=== PATIENT | female | born 1955 | race Caucasian/White ===

== ENCOUNTER 2022-07-18 16:02 | Emergency (ER) | payer MEDICARE, SELFPAY ==
[2022-07-18 16:16] VITALS: BP 140/74; PULSE 69; RESP 20; TEMP 36.3; O2SAT 99
--- NOTE | 2022-07-18 16:26 | ED.SKABFB ---
HPI - Skin/Abscess/Foreign Bdy General Chief complaint: Skin/Abscess/Foreign Body Stated complaint: Lt Facial Irritation Time Seen by Provider: 07/18/22 16:26 Source: patient Mode of arrival: ambulatory Limitations: no limitations History of Present Illness HPI narrative: 66-year-old female presents with rash above upper left on left side. Reports she has tingling and pain to left side of face. Redness and swelling below left eye. Symptoms for 2-3 days. Is concerned that she may have shingles. All systems reviewed and negative except as noted above. Related Data Home Medications Medication Instructions Recorded Confirmed atorvastatin 10 mg tablet 10 mg PO DAILY 07/18/22 07/18/22 escitalopram oxalate 20 mg tablet 20 mg PO DAILY 07/18/22 07/18/22 losartan 50 mg tablet 50 mg PO DAILY 07/18/22 07/18/22 meloxicam 15 mg tablet 15 mg PO DAILY 07/18/22 07/18/22 Review of Systems Review of Systems: CONSTITUTIONAL: Denies fever, chills, or sweats. EYES: Denies visual changes, redness, or discharge. ENT: Denies rhinorrhea, congestion, sore throat, or otalgia. CARDIOVASCULAR: Denies chest pain, palpitations, or edema. RESPIRATORY: Denies cough or dyspnea. GASTROINTESTINAL: Denies abdominal pain, nausea, vomiting, or diarrhea. GENITOURINARY: Denies dysuria or hematuria. SKIN: Reports painful rash to left side of face. MUSCULOSKELETAL: Denies back pain, joint pain, or myalgia. NEUROLOGIC: Denies headache, numbness, or weakness. PSYCHIATRIC: Denies anxiety or depression. All other systems reviewed are negative, except as documented in HPI. PMFSH Comments At time of signature, agree with nursing past medical, surgical, social and family history. There is no relevant family history pertinent to the presenting complaint. Exam Narrative: GENERAL: This is a well-nourished, well-developed patient, in no apparent distress. HEAD: normocephalic, atraumatic. EYES: PERRL. Sclera clear/white. Vision is grossly intact. EARS: External ears normal NOSE: External nose normal NECK: Neck supple, non-tender without lymphadenopathy, masses or thyromegaly. CARDIOVASCULAR: Regular rate and rhythm without murmurs, gallops, or rubs. RESPIRATORY: Clear to auscultation. Breath sounds equal bilaterally. No wheezes, rales, or rhonchi. SKIN: warm, Dry, intact, good texture and turgor. Erythematous, vesicular rash just above left upper lip. There is also some erythema and swelling NEURO: awake, alert, and oriented to person, place and time. There were no obvious focal neurologic abnormalities. EXTREMITIES: No joint tenderness, effusion, or edema noted. HENMT: Head images: 1. Shingles rash 2. shingles rash, no eye involvement. Course Course Level of Care: Express Care Visit Vital Signs Vital signs: Vital Signs Temperature 36.3 C L 07/18/22 16:16 Pulse Rate 69 07/18/22 16:16 Respiratory Rate 20 07/18/22 16:16 Blood Pressure 140/74 07/18/22 16:16 Pulse Oximetry 99 07/18/22 16:16 Oxygen Delivery Room Air 07/18/22 16:16 Temperature 36.3 C L 07/18/22 16:16 Pulse Rate 69 07/18/22 16:16 Respiratory Rate 20 07/18/22 16:16 Blood Pressure 140/74 07/18/22 16:16 Pulse Oximetry 99 07/18/22 16:16 Oxygen Delivery Room Air 07/18/22 16:16 Reviewed MDM - Skin/Abscess/Foreign Bdy MDM Narrative Medical decision making narrative: Patient is aware of diagnosis, understands and agrees to treatment plan. Anticipatory guidance given. Patient agrees to follow-up as directed and is aware of reasons to seek care at the emergency department. Portions of this record may have been created with voice recognition software Differential Diagnosis Differential diagnosis: Likely abscess of skin or subcutaneous tissue, viral exanthem, cellulitis, eczema and contact dermatitis Discharge Plan Discharge Clinical Impression: Shingles Patient Disposition: Home, Self-Care Condition: Stable Instructions:
== END 2022-07-18 16:38 | disposition home or self-care (01) ==
PROVIDERS: Emergency Provider Nurse Practitioner Family; PCP Family Medicine
DX: B02.9 Zoster without complications (principal); E78.00 Pure hypercholesterolemia, unspecified; I10 Essential (primary) hypertension; M19.90 Unspecified osteoarthritis, unspecified site; F41.9 Anxiety disorder, unspecified; F32.A Depression, unspecified
CPT/HCPCS: 99203; G0463

== ENCOUNTER 2025-02-26 10:52 | Emergency (ER) | payer MEDICARE, SELFPAY ==
--- NOTE | 2025-02-26 10:55 | ED_ITS ---
HPI - URI/Sore Throat General Chief Complaint: Upper Respiratory Infection Stated Complaint: sinus infection Source: patient and RN notes reviewed Mode of arrival: ambulatory Limitations: no limitations History of Present Illness HPI Narrative: Patient is a 69-year-old female who presents to the [facility] with complaints cough, sore throat, and ear pain . Patient endorses a frequent nonproductive is occasionally productive. She reports scratchy throat that she believes may be due to post nasal drip. Patient also reports a left ear pain. She denies ear drainage or difficulty hearing. Denies recent fevers. She denies chest pain or shortness of breath. Patient states daughter was sick with similar symptoms recently. Related Data Home Medications ?Medication ?Instructions ?Recorded ?Confirmed ?Last Taken ?Type escitalopram oxalate 20 mg tablet 20 mg PO DAILY 07/18/22 07/18/22 Unknown History losartan 50 mg tablet 50 mg PO DAILY 07/18/22 07/18/22 Unknown History prednisone 20 mg tablet mg 02/26/25 Unknown History Allergies Allergy/AdvReac Type Severity Reaction Status Date / Time No Known Allergies Allergy Verified 02/26/25 11:01 Review of Systems Review of Systems: CONSTITUTIONAL: Denies fever, chills, or sweats. EYES: Denies visual changes, redness, or discharge. ENT: Reports otalgia and sore throat CARDIOVASCULAR: Denies chest pain, palpitations, or edema. RESPIRATORY: Reports cough but denies dyspnea. GASTROINTESTINAL: Denies abdominal pain, nausea, vomiting, or diarrhea. GENITOURINARY: Denies dysuria or hematuria. SKIN: Denies rash or itching. MUSCULOSKELETAL: Denies back pain, joint pain, or myalgia. NEUROLOGIC: Denies headache, numbness, or weakness. Pertinent positives per HPI. PMFSH Comments At the time of my signature, I reviewed and agree with the nursing past medical, surgical, social, and family history. There is no relevant family history pertinent to the patient complaint. Exam Narrative: GENERAL: This is a well-nourished, well-developed patient, in no apparent distress. HEAD: normocephalic, atraumatic. EYES: Sclera clear/white. Vision is grossly intact. EARS: External ears normal, auditory canals clear and without drainage, Right TM erythematous. Left TM erythematous and bulging. Hearing grossly intact. NOSE: External nose normal with no obvious nasal discharge, nares without redness, no rhinorrhea. THROAT: Mucous membranes moist, oropharyngeal erythema. NECK: Neck supple, non-tender without lymphadenopathy, masses or thyromegaly. CARDIOVASCULAR: Regular rate and rhythm without murmurs, gallops, or rubs. RESPIRATORY: Clear to auscultation. Breath sounds equal bilaterally. No wheezes, rales, or rhonchi. GASTROINTESTINAL: Abdomen soft, non-tender, nondistended. Bowel sounds are active. No hepato-splenomegaly, or palpable masses. No guarding. SKIN: warm, intact with no suspicious lesions or rash, good texture and turgor. NEURO: awake, alert, and oriented to person, place and time. There were no obvious focal neurologic abnormalities. Course Course Level of Care: Express Care Visit Vital Signs Vital signs: Vital Signs Temperature 97.7 F 02/26/25 11:01 Pulse Rate 87 02/26/25 11:01 Respiratory Rate 18 02/26/25 11:01 Blood Pressure 141/75 H 02/26/25 11:01 Pulse Oximetry 98 02/26/25 11:01 Oxygen Delivery Room Air 02/26/25 11:01 Temperature 97.7 F 02/26/25 11:01 Pulse Rate 87 02/26/25 11:01 Respiratory Rate 18 02/26/25 11:01 Blood Pressure 141/75 H 02/26/25 11:01 Pulse Oximetry 98 02/26/25 11:01 Oxygen Delivery Room Air 02/26/25 11:01 Reviewed MDM - URI/Sore Throat MDM Narrative Medical decision making narrative: Take antibiotics as directed. May given ibuprofen and/or Tylenol as needed for pain and/or fever. Follow up with primary care provider in 7-10 days to have ear rechecked. Go to the ER for any new or worsening symptoms. Avoid smoking/second-hand smoke. Continue to take Tylenol or Motrin for pain. Increase your Vitamin C intake. Use a humidifier or vaporizer at night. Take Medications as prescribed. Drink plenty of water. 8-10 glasses per day. Use flonase 2 times per day for 5 days then as needed Take mucinex 2 times per day and be sure to take with 8oz of water. Follow up with Primary provider if not getting better. Differential Diagnosis Differential diagnosis: Likely upper respiratory infection, otitis media, sinusitis and viral infection Critical Care Time Critical Care Time Critical Care Time: No Discharge Plan Discharge Clinical Impression: Acute left otitis media Sinusitis Qualifiers: Sinusitis location: unspecified location Chronicity: acute Recurrence: non- recurrent Qualified Code(s): J01.90 - Acute sinusitis, unspecified Patient Disposition: Home Condition: Stable Instructions: Antibiotic Form, Sinusitis (ED), Ear Infection (ED) Additional Instructions: Take antibiotics as directed. May given ibuprofen and/or Tylenol as needed for pain and/or fever. Follow up with primary care provider in 7-10 days to have ear rechecked. Go to the ER for any new or worsening symptoms. Avoid smoking/second-hand smoke. Continue to take Tylenol or Motrin for pain. Increase your Vitamin C intake. Use a humidifier or vaporizer at night. Take Medications as prescribed. Drink plenty of water. 8-10 glasses per day. Use flonase 2 times per day for 5 days then as needed Take mucinex 2 times per day and be sure to take with 8oz of water. Follow up with Primary provider if not getting better. Patient Language: Qatari Prescriptions: New amoxicillin-pot clavulanate 875-125 mg tablet 1 tablet PO Q12H 10 Days Qty: 20 0RF fluticasone propionate [Flonase Allergy Relief] 50 mcg/actuation spray,suspension 1 spray intranasal BID Qty: 16 0RF Rx Instructions: administer into each nostril No Action losartan 50 mg tablet 50 mg PO DAILY escitalopram oxalate 20 mg tablet 20 mg PO DAILY prednisone 20 mg tablet Follow-up/Referrals: Gerardo,DAVID Barnett [Primary Care Provider] - Time of Disposition: 11:11
--- OUTSIDE RECORDS SUMMARY | 2025-02-26 10:58 | XMS_ITS | Clinical Summary ---
Author Organization [facility] Physician Office Building [id number] [place] [id number] Care Team Providers Care Office Rn Name Role Phone Jessica Farr MD Primary Care Provider Allergies Active Allergy Reactions Criticality Noted Date Comments Iodinated Contrast Media Hives Medium Povidone-Iodine Hives Medium Medications naproxen sodium 220 mg capsule Take 2 tablets by mouth daily. Active calcium carb/vit D3/minerals (CALCIUM CARBONATE-VIT D3-MIN ORAL) Take by mouth. Active omega-3 fatty acids (LOVAZA) 1 gram capsule Take 1,000 mg by mouth daily. Active escitalopram (LEXAPRO) 20 mg tablet Take 20 mg by mouth daily 01/17/2020 Active losartan (COZAAR) 50 mg tablet Take 50 mg by mouth daily 01/17/2020 Active meclizine (ANTIVERT) 25 mg tablet Take 25 mg by mouth every 8 (eight) hours as needed 07/03/2019 Active docosahexaenoic acid-epa 120-180 mg capsule Take 1,000 mg by mouth daily Active Active Problems Problem Noted Date Diagnosed Date Encounter for screening colonoscopy 06/24/2020 Overview (06/24/2020): Added automatically from request for surgery [id number] Personal history of colonic polyps 06/24/2020 Overview (06/24/2020): Added automatically from request for surgery [id number] Surgical History Surgery Date Site/Laterality Comments TUBAL LIGATION Bilateral tubal ligation BREAST BIOPSY 08/16/1998 - 08/15/1999 Breast biopsy HYSTERECTOMY 08/16/2010 - 08/15/2011 ANKLE SURGERY Left DILATION AND CURETTAGE OF UTERUS x3-4 SPINE SURGERY 08/16/2016 - 08/15/2017 microdiscectomy TONSILLECTOMY ANKLE FRACTURE SURGERY BACK SURGERY COLONOSCOPY 06/16/2015 - 07/15/2015 POLYPECTOMY Medical History Medical History Date Comments Hx Other Medical panic disorder Depression Depression Anemia Anemia Hypertension GERD (gastroesophageal reflux disease) Arthritis Asthma Kidney stone Colon polyp Family History Medical History Relation Name Comments No Known Problems Brother No Known Problems Daughter No Known Problems Father No Known Problems Mother No Known Problems Sister No Known Problems Son Relation Name Status Comments Brother Daughter Father Mother Sister Son Social History Tobacco Use Types Packs/Day Years Used Date Smoking Tobacco: Former Cigarettes Q uit: 07/01/1973 Smokeless Tobacco: Never Alcohol Use Standard Drinks/Week Comments No 0 (1 standard drink = 0.6 oz pur e alcohol) Comments No Sex and Gender Information Value Date Recorded Sex Assigned at Not on file Legal Sex Female 8:07 AM BAND SAWMILL OPERATOR Gender Identity Female 06/17/2022 5:52 PM CDT Sexual Orientation Not on file Obstetrics History Last Filed Vital Signs Vital Sign Reading Time Taken Comments Blood Pressure 107/56 07/23/2020 10:33 AM BAND SAWMILL OPERATOR Pulse 61 07/23/2020 10:33 AM BAND SAWMILL OPERATOR Temperature 36.6 C (97.8 F) 07/23/2020 10:33 AM BAND SAWMILL OPERATOR Respiratory Rate 20 07/23/2020 10:33 AM BAND SAWMILL OPERATOR Oxygen Saturation 99% 07/23/2020 10:33 AM BAND SAWMILL OPERATOR Inhaled Oxygen Concentration - - Weight 99.4 kg (219 lb 3.2 oz) 06/24/2020 8:15 A M BAND SAWMILL OPERATOR Height 167.6 cm (5' 6) 06/24/2020 8:15 AM BAND SAWMILL OPERATOR Body Mass Index 35.38 06/24/2020 8:15 AM BAND SAWMILL OPERATOR Plan of Treatment Not [place] [address] [place] For more information, please contact: [phone] * Full Code (Latest Code Status on File) Date Activated Date Inactivated Comments 07/23/2020 8:15 AM 07/23/2020 2:51 PM * Full Code Date Activated Date Inactivated Comments 07/23/2020 8:15 AM 07/23/2020 8:15 AM Care Teams Office Rn Relationship Specialty Start Date End Date Jessica Farr MD PCP - General 05/19/17
--- OUTSIDE RECORDS SUMMARY | 2025-02-26 10:58 | XMS_ITS | Encounter Summary ---
Author Organization [facility] Address [address] [place] [address] Phone Care Team Providers Care Pmo Consultant Name Role Phone Jessica Farr MD Primary Care Provider [phone] Adalberto Gentile MD Unavailable Nithin Vu MD Primary Care Provider [phone] Karen Carrillo Primary Care Provider + Karen Carrillo PAC Primary Care Provider + Reason for Visit * Reason Comments Medication Refill Encounter Details Date Type Department Care Team (Late st Contact Info) Description 12/23/2022 Refill [facility] - Family Medicine [facility] [address] [place] [id number] Jessica Farr MD [address] [place] [address] Medication Refill Social History Tobacco Use Types Packs/Day Years Used Date Smoking Tobacco: Former Smokeless Tobacco: Never Comments:Pt states that she would only smoke socially Alcohol Use Standard Drinks/Week Comments No 0 (1 standard drink = 0.6 oz pur e alcohol) PHQ-2 Answer Date Recorded Total Score - Questions 1-9 0 01/2022 Education Answer Date Recorded What is the highest level of school you have completed or the highest degree you have received? Bachelor's degree (e.g., BA, AB, BS) 08/30/2021 Sexually Active Control Partners Comments Not Currently Male Comments No Sex and Gender Information Value Date Recorded Sex Assigned at Not on file Legal Sex Female 11:10 PM CDT Gender Identity Not on file Sexual Orientation Not on file documented as of this encounter Miscellaneous Notes * Telephone Encounter - Angela Lopez RN - 12/24/2022 12:11 PM CDT Medication failed the protocol, provider to review and approve the medication order if appropriate. Requested Prescriptions Pending Prescriptions Disp Refills meloxicam (MOBIC) 15 MG Tablet [Pharmacy Med Name: MELOXICAM 15 MG TABLET] 90 Tablet 1 Sig: TAKE 1 TABLET BY MOUTH EVERY DAY NSAIDs Protocol Failed - 12/23/2022 5:59 PM Failed - Not delegated, patient not between 1 and 65 years of age Passed - Normal serum creatinine in past 12 months CREATININE, BLOOD Date Value Ref Range Status 07/21/2022 0.70 0.60 - 1.10 mg/dL Final Passed - Visit with relevant provider in past 12 months or upcoming 90 days Recent Visits Date Type Provider Dept 07/28/22 Office Visit Jessica Farr MD [facility] 07/21/22 Office Visit Nithin Vu MD [facility] 01/26/22 Office Visit Jessica Farr MD [facility] Showing recent visits within past 365 days and meeting all other requirements Future Appointments Date Type Provider Dept 01/26/23 Appointment Jessica Farr MD [facility] Showing future appointments within next 90 days and meeting all other requirements Passed - No matching NSAID med order in past 45 days No matching medication orders between 11/09/2022 12:11 PM and 12/24/2022 12:11 PM Passed - AST less than 55 or ALT less than 90 in past 12 months SGOT (AST) Date Value Ref Range Status 07/21/2022 25 <=32 U/L Final SGPT (ALT) Date Value Ref Range Status 07/21/2022 22 <=41 U/L Final Passed - HGB greater than 10 or HCT greater than 30 in past 12 months HEMOGLOBIN (HGB) Date Value Ref Range Status 07/21/2022 14.2 12.0 - 15.8 g/dL Final HEMATOCRIT (HCT) Date Value Ref Range Status 07/21/2022 42.8 36.0 - 47.0 % Final documented in this encounter Plan of Treatment Upcoming Encounters Date Type Department Care Team (Late st Contact Info) Description 03/06/2025 2:30 PM CDT Office Visit [facility] General Surgery - [place] [address]2 [facility] [address] [place] [address] Karen Carrillo, PAC [address] [place] [address] Dirk Peña MD #2 [facility] [address] [place] [address] 06/28/2025 9:45 AM BOBTAILER Office Visit [facility] [address]2 [place] [phone] Adalberto Gentile MD #2 [facility] [address] [place] [address] 08/22/2025 9:00 AM BOBTAILER Office Visit [facility] Family Medicine [facility] [address] [place] [address] Karen Carrillo, PAC [address] [place] [address] documented as of this encounter Visit Diagnoses Not on filedocumented in this encounter Additional Health Concerns Assessment Noted Time PHQ-9 Depression Total Score: 0 07/21/20 9:00 AM BOBTAILER documented as of this encounter Care Teams Pmo Consultant Relationship Specialty Start Date End Date Jessica Farr MD [address] [place] [address] PCP - General Family Medicine 05/19/17 11/10/23 Nithin Vu MD [address] [facility] [address] [address] PCP - General Family Medicine 11/11/23 05/23/24 Karen Carrillo, MELIDA [address] [place] [address] PCP - General Physician First Aid Nurse 05/24/24 05/25/24 Karen Carrillo, PAC [address] [place] [address] PCP - General Physician First Aid Nurse 08/22/24 Adalberto Gentile MD [address] [address] [address] Consulting Physician Urology 06/17/23 documented as of this encounter
--- OUTSIDE RECORDS SUMMARY | 2025-02-26 10:58 | XMS_ITS | Encounter Summary ---
Author Organization [facility] Address [address] [place] [address] Phone Care Team Providers Care Dental Office Receptionist Name Role Phone Jessica Farr MD Primary Care Provider [phone] Adalberto Gentile MD Unavailable Nithin Vu MD Primary Care Provider [phone] Karen Carrillo Primary Care Provider + Karen Carrillo PAC Primary Care Provider + Reason for Visit * Reason Comments Medication Refill Encounter Details Date Type Department Care Team (Late st Contact Info) Description 09/23/2022 Refill [facility] - Family Medicine [facility] [address] [place] [phone] Jessica Farr MD [address] [place] [address] Medication Refill Social History Tobacco Use Types [...] encounter Miscellaneous Notes * Telephone Encounter - Jasmine Weiss RN - 09/23/2022 11:10 AM LISW Refill requested too soon. documented in this encounter Plan of Treatment Upcoming Encounters Date Type Department Care Team (Late st Contact Info) Description 03/06/2025 2:30 PM CDT Office Visit [facility] General Surgery [facility] #2 [facility] [address] [place] [address] Karen Carrillo, PAC [address] [place] [address] Dirk Peña MD #2 [facility] [address] [place] [address] 06/28/2025 9:45 AM LISW Office Visit [facility] #[address] [place] [address] Adalberto Gentile MD #2 [facility] [address] [place] [address] 08/22/2025 9:00 AM LISW Office Visit [facility] Family Medicine [facility] [address] [place] [address] Karen Carrillo, PAC [address] [place] [address] documented as of this encounter Visit Diagnoses Not on filedocumented in this encounter Additional Health Concerns Assessment Noted Time PHQ-9 Depression Total Score: 0 07/21/20 22 9:00 AM LISW documented as of this encounter Care Teams Dental Office Receptionist Relationship Specialty Start Date End Date Jessica Farr MD [address] [place] [address] PCP - General Family Medicine 05/19/17 11/10/23 Nithin Vu MD #[address] [address] PCP - General Family Medicine 11/11/23 05/23/24 Karen Carrillo PAC [address] [place] [address] PCP - General Physician Hand Filer Balance Wheel 05/24/24 05/25/24 Karen Carrillo, MELIDA [address] [place] [address] PCP - General Physician Hand Filer Balance Wheel 08/22/24 Adalberto Gentile MD #[address] [address] Consulting Physician Urology 06/17/23 documented as of this encounter
--- OUTSIDE RECORDS SUMMARY | 2025-02-26 10:58 | XMS_ITS | Encounter Summary ---
Author Organization [facility] Address [address] [place] [address] Phone Care Team Providers Care Loader Machine Name Role Phone Jessica Farr MD Primary Care Provider [phone] Adalberto Gentile MD Unavailable Nithin Vu MD Primary Care Provider [phone] Karen Carrillo Primary Care Provider + Karen Carrillo PAC Primary Care Provider + Reason for Visit * Reason Comments Medication Refill Encounter Details Date Type Department Care Team (Late st Contact Info) Description 11/28/2022 Refill [facility] - Family Medicine [facility] [address] [place] [id number] Jessica Farr MD [address] [place] [address] Medication Refill Social History Tobacco Use Types [...] Telephone Encounter - Jasmine Weiss RN - 11/30/2022 10:51 AM CDT Medication failed the protocol, provider to review and approve the medication order if appropriate. Requested Prescriptions Pending Prescriptions Disp Refills metroNIDAZOLE 1 % Gel [Pharmacy Med Name: METRONIDAZOLE TOPICAL 1% GEL] 60 g Sig: Apply to face daily at bedtime Not Delegated - Off Protocol Failed - 11/28/2022 9:15 AM Failed - This refill cannot be delegated Passed - Visit with relevant provider in past 12 months or upcoming 90 days Recent Visits Date Type Provider Dept 07/28/22 Office Visit Jessica Farr MD [facility] 07/21/22 Office Visit Nithin Vu MD [facility] 01/26/22 Office Visit Jessica Farr MD [facility] Showing recent visits within past 365 days and meeting all other requirements Future Appointments Date Type Provider Dept 01/26/23 Appointment Jessica Farr MD [facility] Showing future appointments within next 90 days and meeting all other requirements documented in this encounter Plan of Treatment Upcoming Encounters Date Type Department Care Team (Late st Contact Info) Description 03/06/2025 2:30 PM CDT Office Visit [facility] - General Surgery - [place] [address] [phone] Karen Carrillo, PAC [address] [place] [address] Dirk Peña MD #2 [facility] [address] [place] [address] 06/28/2025 9:[address] CLEANING EQUIPMENT OPERATOR Office Visit [facility] [address] [place] [address] Adalberto Gentile MD #2 [facility] [address] [place] [address] 08/22/2025 9:[address] CLEANING EQUIPMENT OPERATOR Office Visit [facility] [address] [place] [address] Karen Carrillo, PAC [address] [place] [address] documented as of this encounter Visit Diagnoses Not on filedocumented in this encounter Additional Health Concerns Assessment Noted Time PHQ-9 Depression Total Score: 0 07/21/20 22 9:[address] CLEANING EQUIPMENT OPERATOR documented as of this encounter Care Teams Loader Machine Relationship Specialty Start Date End Date Jessica Farr MD [address] [place] [address] PCP - General Family Medicine 05/19/17 11/10/23 Nithin Vu MD #[address] [address] PCP - General Family Medicine 11/11/23 05/23/24 Karen Carrillo, PAC [address] [place] [address] PCP - General Physician Flare Breaker 05/24/24 05/25/24 Karen Carrillo, MELIDA [address] [place] [address] PCP - General Physician Flare Breaker 08/22/24 Adalberto Gentile MD [facility] [address] [address] Consulting Physician Urology 06/17/23 documented as of this encounter
--- OUTSIDE RECORDS SUMMARY | 2025-02-26 10:58 | XMS_ITS | Clinical Summary ---
Author Organization [facility] Address [address] [place] [address] Phone Care Team Providers Care Patient Services Rep Name Role Phone Adalberto Gentile MD Unavailable Karen Carrillo Primary Care Provider + Allergies No known active allergies Medications fish oil-omega-3 fatty acids 1000 MG Capsule Take 1,000 mg by mouth daily. Active Calcium Carbonate-Vit D-Min (CALCIUM 1200 PO) Take by mouth. Active meclizine (ANTIVERT) 25 MG Chewable Tablet Take 1 Tab by mouth every 8 hours as needed for Dizziness. 30 Tab 1 07/03/2019 Active Ascorbic Acid (Vitamin C) 1000 MG Tablet 08/16/2020 Acti ve Multiple Vitamin (MULTIVITAMIN PO) Take by mouth. Active escitalopram (LEXAPRO) 20 MG Tablet TAKE 1 TABLET BY MOUTH EVERY DAY 90 Tablet 3 08/31/2024 Active losartan (COZAAR) 50 MG Tablet TAKE 1 TABLET BY MOUTH EVERY DAY 90 Tablet 2 09/27/2024 Active meloxicam (MOBIC) 15 MG Tablet TAKE 1 TABLET BY MOUTH EVERY DAY NEEDED FOR MODERATE OR MORE SEVERE PAIN 90 Tablet 1 10/05/2024 Active predniSONE (DELTASONE) 20 MG Tablet Take 3 pills orally for 3 days, then 2 pills for 3 days, then 1 pill for 3 days, then 1/2 pill for 4 days 20 Tablet 02/13/2025 02/27/20 25 Active Active Problems Problem Noted Date Diagnosed Date Low bone mass 08/22/2024 Anxiety 12/01/2023 Herpes zoster without complication 07/21/2022 Cold sore 07/21/2022 Nonalcoholic hepatosteatosis 02/26/2021 Personal history of colonic polyps 06/24/2020 Overview (11/11/2023): Added automatically from request for surgery [id number] Mild intermittent asthma without complication Breast cancer screening 05/19/2016 HTN (hypertension) 10/07/2015 Seasonal allergies GERD (gastroesophageal reflux disease) Resolved Problems Problem Noted Date Diagnosed Date Resolved Date Depression 07/21/2016 12/01/2023 Encounters Date Type Department Care Team Description 02/19/2025 9:15 AM CDT Office Visit [facility] [address] [place] [phone] Karen Carrillo, PAC Hypertension, unspecified type (Primary Dx); Inclusion cyst; Anxiety Discharge Disposition: Discharged to home or Selfcare 02/17/2025 Travel 02/12/2025 Nurse Triage [facility] [address] [place] [phone] Karen Carrillo, PAC Advice Only; Rash 12/20/2024 Telephone [facility] [address] [place] [address] Karen Carrillo, PAC Referral 12/20/2024 Telephone [facility] [address] [place] [phone] Karen Carrillo, PAC Referral; Appointment 12/19/2024 9:15 AM CDT Office Visit [facility] [address] [place] [address] Oegeetha, Kathe N, VISION CARE ASSOCIATE, SECONDARY SCHOOL TEACHER Cellulitis and abscess of trunk (Primary Dx); Other specified disorders of the skin and subcutaneous tissue Discharge Disposition: Discharged to home or Selfcare 12/19/2024 Travel 12/18/2024 Nurse Triage [facility] [address] [place] [phone] Karen Carrillo, PAC Advice Only; Lump from Last 3 Months Immunizations Immunization Administration Dates Next Due Covid-19, Mrna, Lnp-s, Pf, 30 Mcg/0.3 Ml Dose (P fizer) 11/18/2020,10/28/2020 Influenza Vaccine 06/01/2017,06/01/2017 Influenza Vaccine greater than 3 yrs 06/02/2017 Influenza Vaccine, MDCK,quadrivalent, pres free 05/30/2020,05/26/2019 Influenza Vaccine, Quadrivalent, PF 06/01/2021,1 Influenza, Quadrivalent, Adjuvanted 06/23/2023,1 Pneumococcal conjugate PCV20 , polysaccharide [id number] conjugate, adjuvant, PF 07/28/2022 RSV, Recombinant, Protein Larson bunit Rsvpref, Adjuvant Recon (Arexvy) 07/14/2023 TDAP Vaccine 02/06/2021 Tetanus Toxoid, Unspecified Formulation 04/16/20 12 Zoster Vaccine Recombinant 12/30/2023,06/23/2023 Family History Medical History Relation Name Comments Asthma Brother John Cancer Father Enma Skin cancer High Cholesterol Father Enma Hypertension Father Enma Kidney Stones Father Enma Prostate Cancer Father Enma Diabetes Maternal Grandmother Delores Belcher Hypertension Mother Neelam Kidney Stones Mother Neelam Osteoarthritis Mother Neelam Relation Name Status Comments Brother John Father Enma Alive Maternal Grandmother Delores Belcher Mother Neelam Social History Tobacco Use Types Packs/Day Years Used Date Smoking Tobacco: Former Cigarettes 0.3 4 Smokeless Tobacco: Never Tobacco Cessation:Counseling Given: Not Answered Comments:Pt states that she would only smoke socially Alcohol Use Standard Drinks/Week Comments No 0 (1 standard drink = 0.6 oz pur e alcohol) [facility] Utilities Answer Date Recorded In the past 12 months has e electric, gas, oil, or water company threatened to shut off services in your home? No 12/19/2024 Social Connection and Isolation Panel Answer Date Recorded In a typical week, how many times do you talk on the phone with family, friends, or neighbors? Three times a week 12/20/19 25 How often do you get togethe r with friends or relatives? Once a week 12/19/2024 How often do you attend chur ch or evangelical services? Patient declined 12/19/2024 Do you belong to any clubs o r organizations such as confucianism groups, unions, fraternal or athletic groups, or school groups? No 12/19/2024 How often do you attend meet ings of the clubs or organizations you belong to? Never 12/19/2024 Are you , , di vorced, , never , or living with a partner? Living with partner 12/19/2024 AUDIT-C Answer Date Recorded Q1: How often do you have a drink containing alcohol? Never 12/19/2024 Q2: How many drinks containi ng alcohol do you have on a typical day when you are drinking? Patient does not drink Q3: How often do you have si x or more drinks on one occasion? Never 12/19/2024 Overall Financial Resource Strain (CARDIA) Answe r Date Recorded How hard is it for you to pa y for the very basics like food, housing, medical care, and heating? Patient declined 12/19/2024 PHQ-2 Answer Date Recorded Total Score - Questions 1-9 0 07/0 02/2025 [facility] - Occupational Stress Questionnaire Answer Date Recorded Do you feel stress - tense, restless, nervous, or anxious, or unable to sleep at night because your mind is troubled all the time - these days? Not at all 12/19/2024 Exercise Vital Sign Answer Date Recorde d On average, how many days pe r week do you engage in moderate to strenuous exercise (like a brisk walk)? 5 days 12/19/2024 On average, how many minutes do you engage in exercise at this level? 90 min 12/19/2024 Hunger Vital Sign Answer Date Recorded Within the past 12 months, y ou worried that your food would run out before you got the money to buy more. Never true 12/20/19 25 Within the past 12 months, t he food you bought just didn't last and you didn't have money to get more. Never true 12/19/2024 PRAPARE - Transportation Answer Date Re corded In the past 12 months, has l ack of transportation kept you from medical appointments or from getting medications? Patient declined 12/19/2024 In the past 12 months, has l ack of transportation kept you from meetings, work, or from getting things needed for daily living? Patient declined 12/19/2024 Housing Stability Vital Sign Answer Boogie e Recorded In the last 12 months, was t here a time when you were not able to pay the mortgage or rent on time? No 11/10/2023 Number of Places Lived in the Last Year Not on f ile 11/10/2023 In the last 12 months, was t here a time when you did not have a steady place to sleep or slept in a skilled nursing (including now)? No 11/10/2023 Housing Stability Vital Sign Answer Boogie e Recorded In the last 12 months, was t here a time when you were not able to pay the mortgage or rent on time? Patient declined 12/20/19 Number of Times Moved in the Last Year Not on fi le 12/19/2024 At any time in the past 12 m [facility], were you homeless or living in a skilled nursing (including now)? Patient declined 12/19/2024 Education Answer Date Recorded What is the highest level of school you have completed or the highest degree you have received? Bachelor's degree (e.g., BA, AB, BS) 08/30/2021 Sexually Active Control Partners Comments Yes None Male Comments No Sex and Gender Information Value Date Recorded Sex Assigned at Not on file Legal Sex Female 11:10 PM CDT Gender Identity Not on file Sexual Orientation Not on file Last Filed Vital Signs Vital Sign Reading Time Taken Comments Blood Pressure 124/70 02/19/2025 8:57 AM CDT Pulse 57 02/19/2025 8:57 AM CDT Temperature 36.4 C (97.6 F) 02/19/2025 8:57 AM CDT Respiratory Rate 16 12/19/2024 9:22 AM CDT Oxygen Saturation 99% 02/19/2025 8:57 AM CDT Inhaled Oxygen Concentration - - Weight 89.4 kg (197 lb) 02/19/2025 8:57 AM CDT Height 167.6 cm (5' 6) 02/19/2025 8:57 AM CDT Body Mass Index 31.8 02/19/2025 8:57 AM CDT Plan of Treatment Upcoming Encounters Date Type Department Care Team (Late st Contact Info) Description 03/06/2025 2:30 PM CDT Office Visit [facility] - General Surgery [facility] [address] [facility] [address] [place] [phone] Karen Carrillo, PAC [address] [place] [address] Dirk Peña MD [address]2 [facility] [address] [place] [address] 06/28/2025 9:45 AM SEXOLOGIST Office Visit [facility] [address] [place] [phone] Adalberto Gentile MD [address]2 [facility] [address] [place] [address] 08/22/2025 9:00 AM SEXOLOGIST Office Visit [facility] [address] [place] [address] Karen Carrillo, PAC [address] [place] [address] Health Maintenance Due Date Last Done Comments Cologuard 2001 Immunochemical Fecal Occult Blood 2001 SARS-COV-2 Immunization ( season) 2024 07/14/2023, 07/21/2021, 11/18/2020, Additional history exists Influenza Immunization (#1) 2025 11/0 03/2023, 06/02/2022, 06/01/2021, Additional history exists Mammogram 06/16/2025 06/16/2024, 05/18, 04/22/2022, Additional history exists Colonoscopy 07/23/2025 07/23/2020, 06/27/2015 Colorectal Cancer Screening 07/23/2025 DEXA Bone Density 11/17/2025 11/18/2023, 10/31/2021 Td Immunization Every 10 Years (Adults With 1 Tdap) 02/06/2031 02/06/2021 Pneumococcal Immunization (50+ years) Completed 07/28/2022 Pneumococcal Immunization Combined Discontinued 07/28/2022 Respiratory Syncytial Virus (RSV) Immunization (Adult) Completed 07/14/2023 Zoster Immunization Completed 12/30/2023, Hepatitis B Immunization Aged Out No longer eligible based on patient's age to complete this topic Hepatitis C Virus (HCV) Screening Discontinued Human Papillomavirus (HPV) Immunization Aged Out No longer eligible based on patient's age to complete this topic Meningococcal Immunization (ACWY) Aged Out No longer eligible based on patient's age to complete this topic Rotavirus Immunization Aged Out No lo nger eligible based on patient's age to complete this topic Procedures Procedure Name Priority Date/Time Associated Diagnosis Comments EXTERNAL PHYSICAL THERAPY REFERRAL Routine 01/01/2025 12:00 AM CDT Vertigo DRAIN SKIN ABSCESS SIMPLE/SINGLE Routine 12/19/2024 11:47 AM CDT Cellulitis and abscess of trunk Other specified disorders of the skin and subcutaneous tissue CULTURE, AEROBIC ONLY Routine 12/19/2024 10:16 AM CDT Cellulitis and abscess of trunk CULTURE, ANAEROBIC Routine 12/19/2024 10 :16 AM CDT Cellulitis and abscess of trunk CULTURE, ANAEROBIC WITH CULTURE, AEROBIC Routine 12/19/2024 10:16 AM CDT Cellulitis and abscess of trunk [facility] SCREENING BILATERAL DIGITAL W CAD W GABY Routine 06/16/2024 3:15 PM CDT Visit for screening mammogram [facility] BONE DENSITOMETRY AXIAL SKELETON Routine 11/18/2023 1:14 PM CDT Post-menopausal COLONOSCOPY Routine 07/23/2020 from Last 3 Months or Most Recently Relevant to Health Maintenance Results * EXTERNAL PHYSICAL THERAPY REFERRAL (01/01/2025 12:00 AM CDT) 01/01/2025 Mallory Fritcher PAC OUTPT REFERRALS EXT/INT Final Result SCAN * DRAIN SKIN ABSCESS SIMPLE/SINGLE (12/19/2024 11:47 AM CDT) Narrative Kathe Frank APRN, CNP - 12/19/2024 11:47 AM CDT Kathe Frank APRN, CNP 12/19/2024 11:50 AM DRAIN SKIN ABSCESS SIMPLE/SINGLE Date/Time: 12/19/2024 11:47 AM Performed by: Kathe Frank APRN, CNP Authorized by: Kathe Frank APRN, CNP Type: abscess Body area: trunk Location details: back Anesthesia: local infiltration Anesthesia: Local Anesthetic: lidocaine 1% without epinephrine Sedation: Patient sedated: no Scalpel size: 11 Needle gauge: 22 Incision type: single straight Incision depth: dermal Complexity: simple Drainage: purulent Drainage amount: moderate Wound treatment: wound left open Packing material: 1/4 in iodoform gauze Patient tolerance: patient tolerated the procedure well with no immediate complications November Adilia Frank APRN, CNP PROCEDURE/MINOR SURGICAL ORDERABLES Final Result * CULTURE, ANAEROBIC (12/19/2024 10:16 AM CDT) CULTURE RESULTS MIXED PROBABLE ANAEROBES PRESENT. NO FURTHER WORKUP PERFORMED. 12/23/2024 12:32 PM CDT [facility] Culture DRAINAGE FLUID SPECIMEN / Unknown Non-Phlebotomy Collection / Unknown 12/19/2024 10:16 AM CDT 12/19/2024 10:16 AM CDT November Adilia Frank APRN, CNP MICROBIOLOGY - GENERAL OR DERABLES Final Result [facility] [address] [place] [address], [place] * CULTURE, AEROBIC ONLY (12/19/2024 10:16 AM CDT) CULTURE RESULTS [facility] 12/21/2024 11:27 PM CDT [facility] Comment:SENSITIVITY NOT PERF ORMED Culture DRAINAGE FLUID SPECIMEN / Unknown Non-Phlebotomy Collection / Unknown 12/19/2024 10:16 AM CDT 12/19/2024 10:16 AM CDT us November N Oehl VISION CARE ASSOCIATE, SECONDARY SCHOOL TEACHER MICROBIOLOGY - GENERAL OR DERABLES Final Result [facility] [address] [place] [address], * [facility] SCREENING BILATERAL DIGITAL W CAD W GABY (06/16/2024 3:15 PM CDT) Anatomical Region Laterality Modality breast Bilateral Mammography 06/16/2024 4:26 PM CDT Narrative 06/20/2024 12:45 PM SEXOLOGIST - [facility] SCREENING BILATERAL DIGITAL W CAD W GABY BILATERAL DIGITAL SCREENING MAMMOGRAM 3D/2D WITH CAD WITH MEDIOLATERAL OBLIQUE CRANIOCAUDAL: 06/16/2024 The study was acquired using digital technology and interpreted from soft copy. Current study was also evaluated with ICAD version 7.2. 2D digital mammographic views, as well as 3D digital tomosynthesis were performed in the CC and MLO projections. CLINICAL: Routine screening. Patient has no complaints. No personal history of cancer. No family history of breast cancer. COMPARISONS: Comparison is made to exams dated: 06/14/2023, 04/22/2022, 03/26/2021, and 07/02/2018 [facility]. BREAST TISSUE:There are scattered areas of fibroglandular density. FINDINGS: No significant masses, calcifications, or other findings are seen in either breast. There has been no significant interval change. IMPRESSION: NEGATIVE There is no mammographic evidence of malignancy. A 1 year screening mammogram is recommended. A letter will be sent to the patient with these results. The patient will be entered into a reminder system with a target due date of 1 year for her next screening exam. Electronically signed by: Ann-Marie garvin/penrad:06/19/2024 16:21:28 Ornament Stitcher(s): RT Urmila(R)(M), [facility] letter sent: Normal Exam Reading location: [place] Mammogram BI-RADS: Category 1: Negative Procedure Note Ann-Marie Allan MD - 06/20/2024 - [facility] SCREENING BILATERAL DIGITAL W CAD W GABY BILATERAL DIGITAL SCREENING MAMMOGRAM 3D/2D WITH CAD WITH MEDIOLATERAL OBLIQUE CRANIOCAUDAL: 06/16/2024 The study was acquired using digital technology and interpreted from soft copy. Current study was also evaluated with InstamourD version 7.2. 2D digital mammographic views, as well as 3D digital tomosynthesis were performed in the CC and MLO projections. CLINICAL: Routine screening. Patient has no complaints. No personal history of cancer. No family history of breast cancer. COMPARISONS: Comparison is made to exams dated: 06/14/2023, 04/22/2022, 03/26/2021, and 07/02/2018 [facility]. BREAST TISSUE:There are scattered areas of fibroglandular density. FINDINGS: No significant masses, calcifications, or other findings are seen in either breast. There has been no significant interval change. IMPRESSION: NEGATIVE There is no mammographic evidence of malignancy. A 1 year screening mammogram is recommended. A letter will be sent to the patient with these results. The patient will be entered into a reminder system with a target due date of 1 year for her next screening exam. Electronically signed by: Ann-Marie garvin/penrad:06/19/2024 16:21:28 Ornament Stitcher(s): RT Urmila(R)(M), [facility] letter sent: Normal Exam Reading location: [place] Mammogram BI-RADS: Category 1: Negative Karen Carrillo [facility] IMG MAMMO ORDERABLES Fin al Result * [facility] BONE DENSITOMETRY AXIAL SKELETON (11/18/2023 1:14 PM CDT) Anatomical Region Laterality Modality BODY N/A Computed Radiogr aphy 11/18/2023 1:19 PM CDT Impressions 11/18/2023 1:21 PM CDT IMPRESSION: Low Bone Mass. REFERENCE: Bone mineral density: T-Score: Normal (T-score above or = -1.0) Low bone mass (T-score between -1.0 and -2.5) replaces the previously used term osteopenia Osteoporosis (T-score = or below -2.5) Z-Score: Within the expected range for age (Z-score above -2.0) Below the expected range for age (Z-score is -2.0 or below) Please see below follow up recommendations. Medical evaluation for secondary causes of low bone mineral density may be appropriate. FRAX is a World Health Organization validated fracture risk assessment tool that calculates a person's 10 year probability of a major osteoporosis related fracture and hip fracture. According to the National Osteoporosis Foundation guidelines, postmenopausal women and men age 50 or older with low bone mass and a 10 year probability of a major osteoporosis related fracture = or greater than 20% or a 10 year probability of a hip fracture = or greater than 3% should be considered for pharmacological treatment for the prevention of osteoporosis. For further information, including treatment recommendations, please refer to the 2019 ISCD Official Positions (http://www.iscd.org) and the NOF's Clinician's Guide to Prevention and Treatment of Osteoporosis (http://www.nof.org/professionals/clinical-guidelines) Narrative 11/18/2023 1:21 PM CDT EXAM DESCRIPTION: [facility] BONE DENSITOMETRY AXIAL SKELETON REASON FOR STUDY: 68 y/o year old F with given history of: Post menopausal status. History of prior fracture. Patient has taken/is taking vitamin-D, multivitamin and calcium. 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 LEFT HIP: Total BMD is 0.877 g/cm2 T-score is -1.0 This is a 2.4% decrease in comparison to prior exam which is not statistically significant. Femoral neck BMD is 0.826 g/cm2 T-score is -1.5 FRAX: 10 year risk for a major osteoporotic fracture is 14.3 %, 10 year risk for a hip fracture is 1.6 % THIS IS AN ELECTRONICALLY VERIFIED FINAL REPORT 11/18/2023 1:19 PM - Electronically signed by Xochitl Mansfield M.D. TW: TW Report ID: [id number] Reading Location: [place] [address] Procedure Note Xochitl Mansfield MD - 11/18/2023 EXAM DESCRIPTION: [facility] BONE DENSITOMETRY AXIAL SKELETON REASON FOR STUDY: 68 y/o year old F with given history of: Post menopausal status. History of prior fracture. Patient has taken/is taking vitamin-D, multivitamin and calcium. 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 LEFT HIP: Total BMD is 0.877 g/cm2 T-score is -1.0 This is a 2.4% decrease in comparison to prior exam which is not statistically significant. Femoral neck BMD is 0.826 g/cm2 T-score is -1.5 FRAX: 10 year risk for a major osteoporotic fracture is 14.3 %, 10 year risk for a hip fracture is 1.6 % THIS IS AN ELECTRONICALLY VERIFIED FINAL REPORT 11/18/2023 1:19 PM - Electronically signed by Xochitl Mansfield M.D. TW: TW Report ID: [id number] Reading Location: [id number] IMPRESSION: Low Bone Mass. REFERENCE: Bone mineral density: T-Score: Normal (T-score above or = -1.0) Low bone mass (T-score between -1.0 and -2.5) replaces the previously used term osteopenia Osteoporosis (T-score = or below -2.5) Z-Score: Within the expected range for age (Z-score above -2.0) Below the expected range for age (Z-score is -2.0 or below) Please see below follow up recommendations. Medical evaluation for secondary causes of low bone mineral density may be appropriate. FRAX is a World Health Organization validated fracture risk assessment tool that calculates a person's 10 year probability of a major osteoporosis related fracture and hip fracture. According to the National Osteoporosis Foundation guidelines, postmenopausal women and men age 50 or older with low bone mass and a 10 year probability of a major osteoporosis related fracture = or greater than 20% or a 10 year probability of a hip fracture = or greater than 3% should be considered for pharmacological treatment for the prevention of osteoporosis. For further information, including treatment recommendations, please refer to the 2019 ISCD Official Positions (http://www.iscd.org) and the NOF's Clinician's Guide to Prevention and Treatment of Osteoporosis (http://www.nof.org/professionals/clinical-guidelines) us Nithin Vu MD IMG DEXA ORDERABLES Final Result * COLONOSCOPY (07/23/2020) us Dash Simmons MD PROCEDURE/MINOR SURGICAL ORDER MOHIT Edited Result - Final from Last 3 Months or Most Recently Relevant to Health Maintenance Insurance MEDICARE C AETNA Advance Directives Documents on File Type Date Recorded Patient It Admin Expl anation Other Advance Directive 12/05/2021 2:00 PM PROCEDURE CONSENT/UROLOGY Care Teams Patient Services Rep Relationship Specialty Start Date End Date Karen Carrillo PAC [address] [place] [address] PCP - General Physician Blowing Weasand 08/22/24 Adalberto Gentile MD [address] [address] Consulting Physician Urology 06/17/23
--- OUTSIDE RECORDS SUMMARY | 2025-02-26 10:58 | XMS_ITS | Referral Summary ---
Author Organization [facility] Physician Office Building [id number] [place] [phone] Care Team Providers Care Box Tender Name Role Phone Jessica Farr MD Primary [...] (06/24/2020): Added automatically from request for surgery [id number] Personal history of colonic polyps 06/24/2020 Overview (06/24/2020): Added automatically from request for surgery [id number] Social History Tobacco Use Types Packs/Day Years Used Date Smoking Tobacco: Former Cigarettes Q uit: 07/01/1973 Smokeless Tobacco: Never Alcohol Use Standard Drinks/Week Comments No 0 (1 standard drink = 0.6 oz pur e alcohol) Comments No Sex and Gender Information Value Date Recorded Sex Assigned at Not on file Legal Sex Female 8:07 AM AUTOMOTIVE TEACHER Gender Identity Female 06/17/2022 5:52 PM CDT Sexual Orientation Not on file Last Filed Vital Signs Vital Sign Reading Time Taken Comments Blood Pressure 107/56 07/23/2020 10:33 AM AUTOMOTIVE TEACHER Pulse 61 07/23/2020 10:33 AM AUTOMOTIVE TEACHER Temperature 36.6 C (97.8 F) 07/23/2020 10:33 AM AUTOMOTIVE TEACHER Respiratory Rate 20 07/23/2020 10:33 AM AUTOMOTIVE TEACHER Oxygen Saturation 99% 07/23/2020 10:33 AM AUTOMOTIVE TEACHER Inhaled Oxygen Concentration - - Weight 99.4 kg (219 lb 3.2 oz) 06/24/2020 8:15 A M AUTOMOTIVE TEACHER Height 167.6 cm (5' 6) 06/24/2020 8:15 AM AUTOMOTIVE TEACHER Body Mass Index 35.38 06/24/2020 8:15 AM AUTOMOTIVE TEACHER Plan of Treatment Not on file [place] For more information, please contact: [phone] * Full Code (Latest Code Status on File) Date Activated Date Inactivated Comments 07/23/2020 8:15 AM 07/23/2020 2:51 PM * Full Code Date Activated Date Inactivated Comments 07/23/2020 8:15 AM 07/23/2020 8:15 AM Care Teams Box Tender Relationship Specialty Start Date End Date Jessica Farr MD PCP - General 05/19/17
--- OUTSIDE RECORDS SUMMARY | 2025-02-26 10:58 | XMS_ITS | Encounter Summary ---
Author Organization [facility] Address [address] [place] [address] Phone Care Team Providers Care Therapeutic Specialist Name Role Phone Adalberto Gentile MD Unavailable Nithin Vu MD Primary Care Provider [phone] Karen Carrillo Primary Care Provider + Karen Carrillo PAC Primary Care Provider + Reason for Visit * Reason Comments Medication Refill Encounter Details Date Type Department Care Team (Late st Contact Info) Description 11/30/2023 Refill [facility] - Family Medicine [facility] [address] [place] [address] Jessica Farr MD [address]2 [place] [address] Medication Refill Social History Tobacco Use Types Packs/Day Years Used Date Smoking Tobacco: Former Cigarettes 0.3 4 Smokeless Tobacco: Never Comments:Pt states that she would only smoke socially Alcohol Use Standard Drinks/Week Comments No 0 (1 standard drink = 0.6 oz pur e alcohol) [facility] Utilities Answer Date Recorded In the past 12 months has [employer], gas, oil, or water company threatened to shut off services in your home? No 11/10/2023 Social Connection and Isolation Panel Answer Date Recorded In a typical week, how many times do you talk on the phone with family, friends, or neighbors? Patient declined 11/10/2023 How often do you get togethe r with friends or relatives? Patient declined 11/10/2023 How often do you attend mandaeism or mu-ism serv ices? Patient declined 11/10/2023 Do you belong to any clubs o r organizations such as mandaeism groups, unions, fraternal or athletic groups, or school groups? No 11/10/2023 How often do you attend meet ings of the clubs or organizations you belong to? Patient declined 11/10/2023 Are you , , di vorced, , never , or living with a partner? 11/10/2023 AUDIT-C Answer Date Recorded Q1: How often do you have a drink containing alcohol? Never 11/10/2023 Q2: How many drinks containi ng alcohol do you have on a typical day when you are drinking? Patient does not drink Q3: How often do you have si x or more drinks on one occasion? Never 11/10/2023 Overall Financial Resource Strain (CARDIA) Answe r Date Recorded How hard is it for you to pa y for the very basics like food, housing, medical care, and heating? Patient declined 11/10/2023 PHQ-2 Answer Date Recorded Total Score - Questions 1-9 0 01/2022 [facility] - Occupational Stress Questionnaire Answer Date Recorded Do you feel stress - tense, restless, nervous, or anxious, or unable to sleep at night because your mind is troubled all the time - these days? Not at all 11/10/2023 Exercise Vital Sign Answer Date Recorde d On average, how many days pe r week do you engage in moderate to strenuous exercise (like a brisk walk)? 3 days 11/10/2023 On average, how many minutes do you engage in exercise at this level? 100 min 11/10/2023 Hunger Vital Sign Answer Date Recorded Within the past 12 months, y ou worried that your food would run out before you got the money to buy more. Never true 11/10/19 24 Within the past 12 months, t he food you bought just didn't last and you didn't have money to get more. Never true 11/10/2023 PRAPARE - Transportation Answer Date Re corded In the past 12 months, has l ack of transportation kept you from medical appointments or from getting medications? No 10/15 In the past 12 months, has l ack of transportation kept you from meetings, work, or from getting things needed for daily living? No 11/10/2023 Housing Stability Vital Sign Answer [...] place to sleep or slept in a nursing home (including now)? No 11/10/2023 Education Answer Date Recorded What is the [...] Telephone Encounter - Angela Lopez RN - 11/30/2023 11:37 AM CDT duplicate documented in this encounter Plan of Treatment Upcoming Encounters Date Type Department Care Team (Late st Contact Info) Description 03/06/2025 2:30 PM CDT Office Visit [facility] - General Surgery - [place] [address] [phone] Karen Carrillo PAC [address] [place] [address] Dirk Peña MD #[address] [address] 06/28/2025 9:45 AM CEMENT PATCHER Office Visit [facility]OLOGY #[address] [place] [address] Adalberto Gentile MD #[address] [address] 08/22/2025 9:00 AM CEMENT PATCHER Office Visit [facility] Medical [facility] - Family [facility] #[address] [place] [address] Karen Carrillo PAC [address] [place] [address] documented as of this encounter Visit Diagnoses Not on filedocumented in this encounter Additional Health Concerns Assessment Noted Time PHQ-9 Depression Total Score: 0 07/21/20 22 9:00 AM CEMENT PATCHER documented as of this encounter Care Teams Therapeutic Specialist Relationship Specialty Start Date End Date Nithin Vu MD #[address] [address] PCP - General Family Medicine 11/11/23 05/23/24 Karen Carrillo, MELIDA [address] [place] [address] PCP - General Physician Instrument Repair Technician 05/24/24 05/25/24 Karen Carrillo, MELIDA [address] [place] [address] PCP - General Physician Instrument Repair Technician 08/22/24 Adalberto Gentile MD #[address] [address] Consulting Physician Urology 06/17/23 documented as of this encounter
--- OUTSIDE RECORDS SUMMARY | 2025-02-26 10:58 | XMS_ITS | Encounter Summary ---
Author Organization [facility] Address [address] [place] [address] Phone Care Team Providers Care Frog Or Oyster Farmworker Name Role Phone Adalberto Gentile MD Unavailable Nithin Vu MD Primary Care Provider [phone] Karen Carrillo Primary Care Provider + Karen Carrillo PAC Primary Care Provider + Reason for Visit * Reason Comments Medication Refill Encounter Details Date Type Department Care Team (Late st Contact Info) Description 12/25/2023 Refill [facility] - Family Medicine [facility] #2 [place] [phone] Jessica Farr MD [address] [place] [address] Medication Refill Social History Tobacco Use Types Packs/Day Years Used Date Smoking Tobacco: Former Cigarettes 0.3 4 Smokeless Tobacco: Never Comments:Pt states that she would only smoke socially Alcohol Use Standard Drinks/Week Comments No 0 (1 standard drink = 0.6 oz pur e alcohol) [facility] Utilities Answer Date Recorded In the past 12 months has [employer], gas, oil, or water company threatened to shut off services in your home? No 11/10/2023 Social Connection and Isolation Panel Answer Date Recorded In a typical week, how many times do you talk on the phone with family, friends, or neighbors? Patient declined 11/10/2023 How often do you get togethe r with friends or relatives? Patient declined 11/10/2023 How often do you attend rastafari or mormon serv ices? Patient declined 11/10/2023 Do you belong to any clubs o r organizations such as rastafari groups, unions, fraternal or athletic groups, or [...] Total Score - Questions 1-9 0 01/2022 [facility] - Occupational Stress Questionnaire Answer Date Recorded [...] place to sleep or slept in a chcf (including now)? No 11/10/2023 Education Answer Date [...] Telephone Encounter - Angela Lopez RN - 12/27/2023 8:38 AM CDT Medication(s) refilled and signed per [facility] Chronic Medication Refill Standing Order for Pediatricand Adult Patients. Requested Prescriptions Pending Prescriptions Disp Refills losartan (COZAAR) 50 MG Tablet [Pharmacy Med Name: LOSARTAN POTASSIUM 50 MG TAB] 90 Tablet 2 Sig: TAKE 1 TABLET BY MOUTH EVERY DAY ARB Protocol Passed - 12/25/2023 7:33 AM Passed - Serum potassium on record in past 12 months POTASSIUM Date Value Ref Range Status 11/11/2023 4.4 3.5 - 5.1 mmol/L Final Passed - BP on record in the past year Clinician-entered: BP Readings from Last 3 Encounters: 11/11/23 132/76 07/28/23 138/78 06/17/23 125/78 Patient-entered: No data recorded Passed - Visit with relevant provider in past year or upcoming 90 days Recent Visits Date Type Provider Dept 11/11/23 Office Visit Nithin Vu MD [facility] 07/28/23 Office Visit Jessica Farr MD [facility] 01/26/23 Office Visit Jessica Farr MD [facility] Showing recent visits within past 365 days and meeting all other requirements Future Appointments Date Type Provider Dept 03/23/24 Appointment Nithin Vu MD [facility] Showing future appointments within next 90 days and meeting all other requirements Passed - GFR on record in past 12 months GFR, EST. NONAFRICAN Date Value Ref Range Status 11/11/2023 >60 >=60 Final documented in this encounter Plan of Treatment Upcoming Encounters Date Type Department Care Team (Late st Contact Info) Description 03/06/2025 2:30 PM CDT Office Visit [facility] General Surgery [facility] #[address] [address] Karen Carrillo, MELIDA [address] [place] [address] Dirk Peña MD #[address] [address] 06/28/2025 9:45 AM PROPERTY LOSS INSURANCE CLAIM ADJUSTER Office Visit [facility] #[address] [place] [address] Adalberto Gentile MD #2 [facility] [address] [place] [address] 08/22/2025 9:00 AM PROPERTY LOSS INSURANCE CLAIM ADJUSTER Office Visit [facility] Family Medicine [facility] #[address] [place] [address] Karen Carrillo, PAC [address] [place] [address] documented as of this encounter Visit Diagnoses Not on filedocumented in this encounter Additional Health Concerns Assessment Noted Time PHQ-9 Depression Total Score: 0 07/21/20 22 9:00 AM PROPERTY LOSS INSURANCE CLAIM ADJUSTER documented as of this encounter Care Teams Frog Or Oyster Farmworker Relationship Specialty Start Date End Date Nithin Vu MD [address]2 [address] [facility] [address] [place] [address] PCP - General Family Medicine 11/11/23 05/23/24 Karen Carrillo PAC [address] [place] [address] PCP - General Physician Air Box Tester 05/24/24 05/25/24 Karen Carrillo PAC [address] [place] [address] PCP - General Physician Air Box Tester 08/22/24 Adalberto Gentile MD #2 [facility] [address] [place] [address] Consulting Physician Urology 06/17/23 documented as of this encounter
[2025-02-26 11:01] VITALS: BP 141/75; PULSE 87; RESP 18; TEMP 36.5; O2SAT 98
== END 2025-02-26 11:14 | disposition home or self-care (01) ==
PROVIDERS: Emergency Provider Nurse Practitioner; PCP Physician Assistant
DX: H66.92 Otitis media, unspecified, left ear (principal); J01.90 Acute sinusitis, unspecified; I10 Essential (primary) hypertension; E78.00 Pure hypercholesterolemia, unspecified; M19.90 Unspecified osteoarthritis, unspecified site; F41.9 Anxiety disorder, unspecified; F32.A Depression, unspecified
CPT/HCPCS: 99213; G0463

== ENCOUNTER 2025-03-04 12:57 | Emergency (ER) | payer MEDICARE, SELFPAY ==
--- OUTSIDE RECORDS SUMMARY | 2025-03-04 12:59 | XMS_ITS | Encounter Summary ---
Author Organization [employer] Care Team Providers Care Oil Rig Roughneck Name Role Phone Adalberto Gentile MD Unavailable Karen Carrillo Primary Care Provider + Dirk Peña MD Unavailable Encounter Details Date Type Department Care Team (Latest Contact Info) Description 03/04/2025 Travel Social History Tobacco Use Types Packs/Day Years Used Date Smoking Tobacco: Former Cigarettes 0.3 4 Smokeless Tobacco: Never Comments:Pt states that she would only smoke socially Alcohol Use Standard Drinks/Week Comments No 0 (1 standard drink = 0.6 oz pur e alcohol) [facility] Utilities Answer Date Recorded In the past 12 months has [employer], gas, oil, or water company threatened [...] often do you attend chur ch or faith services? Patient declined 12/19/2024 Do you belong to any clubs o r organizations such as evangelical groups, unions, fraternal or athletic groups, or [...] Recorded Total Score - Questions 1-9 0 /0 02/2025 [facility] - Occupational Stress Questionnaire Answer Date [...] place to sleep or slept in a [place] facility (including now)? No 11/10/2023 Housing Stability Vital Sign Answer Boogie e Recorded In the last 12 months, was t here a time when you were not able to pay the mortgage or rent on time? Patient declined 12/20/19 25 Number of Times Moved in the Last Year Not on fi le 12/19/2024 At any time in the past 12 m onths, were you homeless or living in a [place] facility (including now)? Patient declined 12/19/2024 Education Answer [...] on file documented as of this encounter Plan of Treatment Upcoming Encounters Date Type Department Care Team (Late st Contact Info) Description 03/06/2025 8:10 AM CDT Lab [facility] #[address] [address] [facility] 03/06/2025 2:30 PM CDT Office Visit [facility] - General Surgery - [place] #[address] [address] Karen Carrillo, MELIDA [address]2 [place] [address] Dirk Peña MD #[address] [address] 06/28/2025 9:45 AM ACCOUNTING DIRECTOR Office Visit [facility] #[address] [place] [address] Adalberto Gentile MD #2 [facility] [address] [place] [address] 08/22/2025 9:00 AM ACCOUNTING DIRECTOR [facility] #[address] [place] [address] Karen Carrillo PAC [address] [place] [address] documented as of this encounter Visit Diagnoses Not on filedocumented in this encounter Additional Health Concerns Assessment Noted Time PHQ-9 Depression Total Score: 0 02/20/20 9:16 AM CDT documented as of this encounter Care Teams Oil Rig Roughneck Relationship Specialty Start Date End Date Karen Carrillo PAC [address] [place] [address] PCP - General Physician Digital Forensics Examiner 08/22/24 Adalberto Gentile MD [address] [address] Consulting Physician Urology 06/17/23 Dirk Peña MD [address] [facility] [address] [place] [address] Consulting Physician Colon and Rectal Surgery 03/02/25 documented as of this encounter
--- OUTSIDE RECORDS SUMMARY | 2025-03-04 12:59 | XMS_ITS | Clinical Summary ---
Author Organization [facility] Address [address] [place] [address] Phone Care Team Providers Care Diagnostic Assistant Name Role Phone Adalberto Gentile MD Unavailable Karen Carrillo Primary Care Provider + Dirk Peña MD Unavailable Allergies No known active allergies Medications fish oil-omega-3 fatty acids 1000 MG Capsule Take 1,000 mg by mouth daily. Active Calcium Carbonate-Vit D-Min (CALCIUM 1200 PO) Take by mouth. Active meclizine (ANTIVERT) 25 MG Chewable Tablet Take 1 Tab by mouth every 8 hours as needed for Dizziness. 30 Tab 1 9 Active Ascorbic Acid (Vitamin C) 1000 MG Tablet 1 Active Multiple Vitamin (MULTIVITAMIN PO) Take by mouth. Active escitalopram (LEXAPRO) 20 MG Tablet TAKE 1 TABLET BY MOUTH EVERY DAY 90 Tablet 3 5 Active losartan (COZAAR) 50 MG Tablet TAKE 1 TABLET BY MOUTH EVERY DAY 90 Tablet 2 5 Active meloxicam (MOBIC) 15 MG Tablet TAKE 1 TABLET BY MOUTH EVERY DAY NEEDED FOR MODERATE OR MORE SEVERE PAIN 90 Tablet 1 5 Active predniSONE (DELTASONE) 20 MG Tablet Take 3 pills orally for 3 days, then 2 pills for 3 days, then 1 pill for 3 days, then 1/2 pill for 4 days 20 Tablet 5 02/27/20 25 Active Problems Problem Noted Date Diagnosed Date Low bone mass 08/22/2024 Anxiety 12/01/2023 Herpes zoster without complication 07/21/2022 Cold sore 07/21/2022 Nonalcoholic hepatosteatosis 02/26/2021 Personal history of colonic polyps 06/24/2020 Overview (11/11/2023): Added automatically from request for surgery [id number] Mild intermittent asthma without complication Breast cancer screening 05/19/2016 HTN (hypertension) 10/07/2015 Seasonal allergies GERD (gastroesophageal reflux disease) Resolved Problems Problem Noted Date Diagnosed Date Resolved Date Depression 07/21/2016 12/01/2023 Encounters Date Type Department Care Team Description 03/04/2025 Travel 02/19/2025 9:15 AM CDT Office Visit [facility] [address] [place] [address] Karen Carrillo, PAC Hypertension, unspecified type (Primary Dx); Inclusion cyst; Anxiety Discharge Disposition: Discharged to home or Selfcare 02/17/2025 Travel 02/12/2025 [facility] [address] [place] [address] Karen Carrillo, PAC Advice Only; Rash 12/20/2024 [facility]phone [facility] [place] [address] Karen Carrillo, PAC Referral 12/20/2024 Telephone [facility] [address] [place] [address] Karen Carrillo, PAC Referral; Appointment 12/19/2024 9:15 AM CDT Office Visit [facility] [address] [place] [address] Kathe Frank N, ESL PROFESSOR, SHIPWRIGHT Cellulitis and abscess of trunk (Primary Dx); Other specified disorders of the skin and subcutaneous tissue Discharge Disposition: Discharged to home or Selfcare 12/19/2024 Travel 12/18/2024 Nurse Triage [facility] [address] [place] [address] Karen Carrillo, PAC Advice Only; Lump from Last 3 Months Immunizations Immunization Administration Dates Next Due Covid-19, Mrna, Lnp-s, Pf, 30 Mcg/0.3 Ml Dose (P fizer) 11/18/2020,10/28/2020 Influenza Vaccine 06/01/2017,06/01/2017 Influenza Vaccine greater than 3 yrs 06/02/2017 Influenza Vaccine, MDCK,quadrivalent, pres free 05/30/2020,05/26/2019 Influenza Vaccine, Quadrivalent, PF 06/01/2021,1 Influenza, Quadrivalent, Adjuvanted 06/23/2023,1 Pneumococcal conjugate PCV20 , polysaccharide [id number] conjugate, adjuvant, PF 07/28/2022 RSV, Recombinant, Protein [...] drink = 0.6 oz pur e alcohol) [facility] Utilities Answer Date Recorded In the past 12 months has [employer], gas, oil, or water [employer] threatened to shut off services in your [...] often do you attend chur ch or episcopal services? Patient declined 12/19/2024 Do you belong to any clubs o r organizations such as yazdanism groups, unions, fraternal or athletic groups, or [...] Score - Questions 1-9 0 07/0 02/2025 [facility] - Occupational Stress Questionnaire Answer Date [...] place to sleep or slept in a halfway (including now)? No 11/10/2023 Housing Stability Vital Sign Answer Boogie e Recorded In the last 12 months, was t here a time when you were not able to pay the mortgage or rent on time? Patient declined 12/20/19 Number of Times Moved in the Last Year Not on fi le 12/19/2024 At any time in the past 12 m [facility], were you homeless or living in a halfway (including now)? Patient declined 12/19/2024 Education Answer [...] Info) Description 03/06/2025 8:10 AM CDT Lab [facility] LAB #2 [facility] [address] [place] [address] [facility] Lab/Ancillary 03/06/2025 2:30 PM CDT Office Visit [facility] [place] #2 [facility] [address] [place] [address] Karen Carrillo, PAC [address]2 [place] [address] Dirk Peña MD #[address] [facility] [address] [place] [address] 06/28/2025 9:45 AM FRONT CLERK Office Visit [facility] PHYSICIAN [facility] #2 [place] [address] Adalberto Gentile MD #2 [facility] [address] [place] [address] 08/22/2025 9:00 AM FRONT CLERK Office Visit [facility] [place] #2 [place] [address] Karen Carrillo, PAC [address] [place] [address] Health Maintenance Due Date Last Done Comments Cologuard 2001 Immunochemical Fecal Occult Blood 2001 SARS-COV-2 Immunization ( season) 2024 07/14/2023, 07/21/2021, 11/18/2020, Additional history exists Influenza Immunization (#1) 2025 110 03/2023, 06/02/2022, 06/01/2021, Additional history exists Mammogram [...] AM CDT Cellulitis and abscess of trunk YVONNE SCREENING BILATERAL DIGITAL W CAD W GABY Routine 06/16/2024 3:15 PM CDT Visit for screening mammogram [facility] BONE DENSITOMETRY AXIAL SKELETON Routine 11/18/2023 1:14 PM CDT Post-menopausal COLONOSCOPY Routine 07/23/2020 from Last 3 Months or Most Recently Relevant to Health Maintenance Results * EXTERNAL PHYSICAL THERAPY REFERRAL (01/01/2025 12:00 AM CDT) 01/01/2025 us Karen Carrillo PAC OUTPT REFERRALS EXT/INT Final Result SCAN [...] the procedure well with no immediate complications us Kathe Frank APRN, CNP PROCEDURE/MINOR SURGICAL ORDERABLES Final Result * CULTURE, ANAEROBIC (12/19/2024 10:16 AM CDT) CULTURE RESULTS MIXED PROBABLE ANAEROBES PRESENT. NO FURTHER WORKUP PERFORMED. 12/23/2024 12:32 PM CDT [facility] Culture DRAINAGE FLUID SPECIMEN / Unknown Non-Phlebotomy Collection / Unknown 12/19/2024 10:16 AM CDT 12/19/2024 10:16 AM CDT november N Monika AMARO CNP MICROBIOLOGY - GENERAL OR DERABLES Final Result Performing Organization Address City/[facility]/ZIP Co de Phone Number [facility] [address] [place] [address], [place] * CULTURE, AEROBIC ONLY (12/19/2024 10:16 AM CDT) CULTURE RESULTS FER FAGANSHEREEN 12/21/2024 11:27 PM CDT [facility] Comment:SENSITIVITY NOT PERF ORMED Culture DRAINAGE FLUID SPECIMEN / Unknown Non-Phlebotomy Collection / Unknown 12/19/2024 10:16 AM CDT 12/19/2024 10:16 AM CDT us November N Monika AMARO CNP MICROBIOLOGY - GENERAL OR DERABLES Final Result Performing Organization Address [facility] Co de Phone Number [facility] [address] [place] [address], [place] * YVONNE SCREENING BILATERAL DIGITAL W CAD W GABY (06/16/2024 3:15 PM CDT) Anatomical Region Laterality Modality breast Bilateral Mammography 06/16/2024 4:26 PM CDT Narrative 06/20/2024 12:45 PM FRONT CLERK - YVONNE SCREENING BILATERAL DIGITAL W CAD [...] exams dated: 06/14/2023, 04/22/2022, 03/26/2021, and 07/02/2018 [facility]. BREAST TISSUE:There are scattered areas of fibroglandular [...] exam. Electronically signed by: Ann-Marie garvin/penrad:06/19/2024 16:21:28 Funeral Car Chauffeur(s): GILDA Kearns)(Adolfo), [facility] letter sent: Normal Exam Reading location: [place] [...] exams dated: 06/14/2023, 04/22/2022, 03/26/2021, and 07/02/2018 [facility]. BREAST TISSUE:There are scattered areas of fibroglandular [...] exam. Electronically signed by: Ann-Marie garvin/penrad:06/19/2024 16:21:28 Funeral Car Chauffeur(s): GILDA Kearns)(M), [facility] letter sent: Normal Exam Reading location: [place] Mammogram BI-RADS: Category 1: Negative Karen Carrillo PAC IMG MAMMO ORDERABLES Fin al Result * [facility] BONE DENSITOMETRY AXIAL SKELETON (11/18/2023 1:14 PM [...] Narrative 11/18/2023 1:21 PM CDT EXAM DESCRIPTION: [facility] BONE DENSITOMETRY AXIAL SKELETON REASON FOR STUDY: 68 y/o year old F with given history of: Post menopausal status. History of prior fracture. Patient has taken/is taking vitamin-D, multivitamin and calcium. Manager Sql/Model: Synerg[employer]yes (S/N [id number]) CLINICAL INFORMATION: Current height: 66 inches Maximum [...] Electronically signed by Xochitl Mansfield M.D. TW: Report ID: [id number] Reading Location: [place] [address] Procedure Note Xochitl Mansfield MD - 11/18/2023 EXAM DESCRIPTION: [facility] BONE DENSITOMETRY AXIAL SKELETON REASON FOR STUDY: 68 y/o year old F with given history of: Post menopausal status. History of prior fracture. Patient has taken/is taking vitamin-D, multivitamin and calcium. Manager Sql/Model: SynergEyes (S/N [id number]) CLINICAL INFORMATION: Current height: 66 inches Maximum [...] Xochitl Mansfield M.D. TW: TW Report ID: [id number] Reading Location: [id number] IMPRESSION: Low Bone Mass. REFERENCE: Bone mineral [...] MD IMG DEXA ORDERABLES Final Result * HM COLONOSCOPY (07/23/2020) us Dash Simmons MD PROCEDURE/MINOR SURGICAL ORDER MOHIT Edited Result - Final from Last 3 Months or Most Recently Relevant to Health Maintenance Insurance MEDICARE C [employer] Advance Directives Documents on File Type Date Recorded Patient Brand Lead Expl anation Other Advance Directive 12/05/2021 2:00 PM PROCEDURE CONSENT/UROLOGY Care Teams Diagnostic Assistant Relationship Specialty Start Date End Date Karen Carrillo PAC [address] [place] [address] PCP - General Physician Finger Buffs Assembler 08/22/24 Adalberto Gentile MD #[address] [address] Consulting Physician Urology 06/17/23 Dirk Peña MD #[address] [address] Consulting Physician Colon and Rectal Surgery 03/02/25
--- OUTSIDE RECORDS SUMMARY | 2025-03-04 12:59 | XMS_ITS | Encounter Summary ---
Author Organization [facility] Address [address] [place] [address] Phone Care Team Providers Care Restaurant Service Manager Name Role Phone Jessica Farr MD Primary Care Provider [phone] Adalberto Gentile MD Unavailable Nithin Vu MD Primary Care Provider [phone] Karen Carrillo PAC Primary Care Provider + Karen Carrillo PAC Primary Care Provider + Dirk Peña MD Unavailable Reason for Visit * Reason Comments Medication Refill Encounter Details Date Type Department Care Team (Late st Contact Info) Description 12/23/2022 Refill [facility] Medical [facility] - Family Medicine [facility] #2 [place] [address] Jessica Farr MD #2 [place] [address] Medication Refill Social History Tobacco Use Types [...] Info) Description 03/06/2025 8:10 AM CDT Lab [facility] #2 [facility] [address] [place] [address] [facility] 03/06/2025 2:30 PM CDT Office Visit [facility] [place] #2 [facility] [address] [place] [address] Karen Carrillo, PAC [address] [place] [address] Dirk Peña MD #2 [facility] [address] [place] [address] 06/28/2025 9:45 AM MEDICAL LABORATORY ASSISTANT Office Visit [facility] #2 [place] [address] Adalberto Gentile MD #2 [facility] [address] [place] [address] 08/22/2025 9:00 AM MEDICAL LABORATORY ASSISTANT Office Visit [facility] Family Medicine - [place] #2 [place] [address] Karen Carrillo, PAC [address] [place] [address] documented as of this encounter Visit Diagnoses Not on filedocumented in this encounter Additional Health Concerns Assessment Noted Time PHQ-9 Depression Total Score: 0 07/21/20 22 9:00 AM MEDICAL LABORATORY ASSISTANT documented as of this encounter Care Teams Restaurant Service Manager Relationship Specialty Start Date End Date Jessica Farr MD #2 [place] [address] PCP - General Family Medicine 05/19/17 11/10/23 Nithin Vu MD #[address] [address] PCP - General Family Medicine 11/11/23 05/23/24 Karen Carrillo, PAC #[address] [place] [address] PCP - General Physician Customs Compliance Specialist 05/24/24 05/25/24 Karen Carrillo, PAC [address] [place] [address] PCP - General Physician Customs Compliance Specialist 08/22/24 Adalberto Gentile MD #2 [facility] [address] [place] [address] Consulting Physician Urology 06/17/23 Dirk Peña MD #2 [facility] [address] [place] [address] Consulting Physician Colon and Rectal Surgery 03/02/25 documented as of this encounter
--- OUTSIDE RECORDS SUMMARY | 2025-03-04 12:59 | XMS_ITS | Clinical Summary ---
Author Organization [facility] [address] [place] [address] Care Team Providers Care On Site Soil Evaluator Name Role Phone Jessica Farr MD Primary [...] (06/24/2020): Added automatically from request for surgery [id number] Personal history of colonic polyps 06/24/2020 Overview (06/24/2020): Added automatically from request for surgery [id number] Surgical History Surgery Date Site/Laterality Comments TUBAL [...] on file Legal Sex Female 8:07 AM OPERATOR Gender Identity Female 06/17/2022 5:52 PM CDT Sexual Orientation Not on file Obstetrics History Last Filed Vital Signs Vital Sign Reading Time Taken Comments Blood Pressure 107/56 07/23/2020 10:33 AM OPERATOR Pulse 61 07/23/2020 10:33 AM OPERATOR Temperature 36.6 C (97.8 F) 07/23/2020 10:33 AM OPERATOR Respiratory Rate 20 07/23/2020 10:33 AM OPERATOR Oxygen Saturation 99% 07/23/2020 10:33 AM OPERATOR Inhaled Oxygen Concentration - - Weight 99.4 kg (219 lb 3.2 oz) 06/24/2020 8:15 A M OPERATOR Height 167.6 cm (5' 6) 06/24/2020 8:15 AM OPERATOR Body Mass Index 35.38 06/24/2020 8:15 AM OPERATOR Plan of Treatment Not on [place] [address] [place] Advance Directives For more information, please contact: [phone] * Full Code (Latest Code Status on File) Date Activated Date Inactivated Comments 07/23/2020 8:15 AM 07/23/2020 2:51 PM * Full Code Date Activated Date Inactivated Comments 07/23/2020 8:15 AM 07/23/2020 8:15 AM Care Teams On Site Soil Evaluator Relationship Specialty Start Date End Date Jessica Farr MD PCP - General 05/19/17
--- OUTSIDE RECORDS SUMMARY | 2025-03-04 12:59 | XMS_ITS | Encounter Summary ---
Author Organization [facility] Address [address] [place] [address] Phone Care Team Providers Care Slurry Mixer Name Role Phone Jessica Farr MD Primary Care Provider [phone] Adalberto Gentile MD Unavailable Nithin Vu MD Primary Care Provider [phone] Karen Carrillo PAC Primary Care Provider + Karen Carrillo PAC Primary Care Provider + Dirk Peña MD Unavailable Reason for Visit * Reason Comments Medication Refill Encounter Details Date Type Department Care Team (Late st Contact Info) Description 09/23/2022 Refill [facility] Medical Group - Family Medicine [facility] #2 [place] [address] Jessica Farr MD #2 [place] [address] Medication Refill Social History Tobacco Use Types [...] Jasmine Weiss RN - 09/23/2022 11:10 AM MANAGER COSTING Refill requested too soon. GER COSTING documented in this encounter Plan of Treatment Upcoming Encounters Date Type Department Care Team (Late st Contact Info) Description 03/06/2025 8:10 AM CDT Lab [facility] LAB #2 [facility] [address] [place] [address] [facility] 03/06/2025 2:30 PM CDT Office Visit [facility] [place] #2 [facility] [address] [place] [address] Karen Carrillo, PAC #[address] [place] [address] Dirk Peña MD #2 [facility] [address] [place] [address] 06/28/2025 9:45 AM MANAGER COSTING Office Visit [facility] UROLOGY #2 [place] [address] Adalberto Gentile MD #2 [facility] [address] [place] [address] 08/22/2025 9:00 AM MANAGER COSTING Office Visit [facility] #2 [place] [address] Karen Carrillo PAC #2 [place] [address] documented as of this encounter Visit Diagnoses Not on filedocumented in this encounter Additional Health Concerns Assessment Noted Time PHQ-9 Depression Total Score: 0 07/21/20 22 9:00 AM MANAGER COSTING documented as of this encounter Care Teams Slurry Mixer Relationship Specialty Start Date End Date Jessica Farr MD #2 [place] [address] PCP - General Family Medicine 05/19/17 11/10/23 Nithin Vu MD #[address] [address] PCP - General Family Medicine 11/11/23 05/23/24 Karen Carrillo PAC #2 [place] [address] PCP - General Physician Laborer Mine 05/24/24 05/25/24 Karen Carrillo PAC #2 [place] [address] PCP - General Physician Laborer Mine 08/22/24 Adalberto Gentile MD #2 [facility] [address] [place] [address] Consulting Physician Urology 06/17/23 Dirk Peña MD #[address] [facility] [address] [address] [address] Consulting Physician Colon and Rectal Surgery 03/02/25 documented as of this encounter
--- OUTSIDE RECORDS SUMMARY | 2025-03-04 12:59 | XMS_ITS | Referral Summary ---
Author Organization [facility] Physician Office Building [address] [place] [address] Care Team Providers Care Railway Station Manager Name Role Phone Jessica Farr MD [...] (06/24/2020): Added automatically from request for surgery [id number] Personal history of colonic polyps 06/24/2020 Overview (06/24/2020): Added automatically from request for surgery [id number] Social History Tobacco Use Types Packs/Day Years Used Date Smoking Tobacco: Former Cigarettes Q uit: 07/01/1973 Smokeless Tobacco: Never Alcohol Use Standard Drinks/Week Comments No 0 (1 standard drink = 0.6 oz pur e alcohol) Comments No Sex and Gender Information Value Date Recorded Sex Assigned at Not on file Legal Sex Female 8:07 AM BUS MATRON Gender Identity Female 06/17/2022 5:52 PM CDT Sexual Orientation Not on file Last Filed Vital Signs Vital Sign Reading Time Taken Comments Blood Pressure 107/56 07/23/2020 10:33 AM BUS MATRON Pulse 61 07/23/2020 10:33 AM BUS MATRON Temperature 36.6 C (97.8 F) 07/23/2020 10:33 AM BUS MATRON Respiratory Rate 20 07/23/2020 10:33 AM BUS MATRON Oxygen Saturation 99% 07/23/2020 10:33 AM BUS MATRON Inhaled Oxygen Concentration - - Weight 99.4 kg (219 lb 3.2 oz) 06/24/2020 8:15 A M BUS MATRON Height 167.6 cm (5' 6) 06/24/2020 8:15 AM BUS MATRON Body Mass Index 35.38 06/24/2020 8:15 AM BUS MATRON Plan of Treatment Not on file [place] Advance Directives For more information, please contact: [phone] * Full Code (Latest Code Status on File) Date Activated Date Inactivated Comments 07/23/2020 8:15 AM 07/23/2020 2:51 PM * Full Code Date Activated Date Inactivated Comments 07/23/2020 8:15 AM 07/23/2020 8:15 AM Care Teams Railway Station Manager Relationship Specialty Start Date End Date Jessica Farr MD PCP - General 05/19/17
--- OUTSIDE RECORDS SUMMARY | 2025-03-04 12:59 | XMS_ITS | Encounter Summary ---
Author Organization [facility] Address [address] [place] [address] Phone Care Team Providers Care Renal Medicine Specialist Name Role Phone Adalberto Gentile MD Unavailable Nithin Vu MD Primary Care Provider [phone] Karen Carrillo PAC Primary Care Provider + Karen Carrillo PAC Primary Care Provider + Dirk Peña MD Unavailable Reason for Visit * Reason Comments Medication Refill Encounter Details Date Type Department Care Team (Late st Contact Info) Description 12/25/2023 Refill [facility] Medical Group - Family Medicine [facility] #2 [place] [address] Jessica Farr MD #2 [place] [address] Medication Refill Social History Tobacco Use Types Packs/Day Years Used Date Smoking Tobacco: Former Cigarettes 0.3 4 Smokeless Tobacco: Never Comments:Pt states that she would only smoke socially Alcohol Use Standard Drinks/Week Comments No 0 (1 standard drink = 0.6 oz pur e alcohol) [facility] Utilities Answer Date Recorded In the past 12 months has [employer], [employer], or [employer] threatened to shut off services in your home? No 11/10/2023 Social Connection and Isolation Panel Answer Date Recorded In a typical week, how many times do you talk on the phone with family, friends, or neighbors? Patient declined 11/10/2023 How often do you get togethe r with friends or relatives? Patient declined 11/10/2023 How often do you attend hindu or rastafarian serv ices? Patient declined 11/10/2023 Do you belong to any clubs o r organizations such as hindu groups, unions, fraternal or athletic groups, or [...] Recorded Total Score - Questions 1-9 0 12/0 01/2022 [facility] - Occupational [...] place to sleep or slept in a alf (including now)? No 11/10/2023 Education Answer Date [...] [place] 01/26/23 Office Visit Jessica Farr MD [place] [...] Info) Description 03/06/2025 8:10 AM CDT Lab [facility] #2 [facility] [address] [place] [address] [facility]Ancillary 03/06/2025 2:30 PM CDT [facility] [place] #2 [facility] [address] [place] [address] Karen Carrillo, PAC #2 [place] [address] Dirk Peña MD #2 [facility] [address] [place] [address] 06/28/2025 9:45 AM HELIX COIL WINDER Office Visit [facility] UROLOGY #2 [place] [address] Adalberto Gentile MD #2 [facility] [address] [place] [address] 08/22/2025 9:00 AM HELIX COIL WINDER [facility] #2 [place] [address] Karen Carrillo, PAC #2 [place] [address] documented as of this encounter Visit Diagnoses Not on filedocumented in this encounter Additional Health Concerns Assessment Noted Time PHQ-9 Depression Total Score: 0 07/21/20 22 9:00 AM HELIX COIL WINDER documented as of this encounter Care Teams Renal Medicine Specialist Relationship Specialty Start Date End Date Nithin Vu MD #2 [facility] [address] [place] [address] PCP - General Family Medicine 11/11/23 05/23/24 Karen Carrillo PAC #2 [place] [address] PCP - General Physician Buildings And Grounds Coordinator 05/24/24 05/25/24 Karen Carrillo PAC #2 [place] [address] PCP - General Physician Buildings And Grounds Coordinator 08/22/24 Adalberto Gentile MD #2 [facility] [address] [place] [address] Consulting Physician Urology 06/17/23 Drik Peña MD #2 [facility] [address] [place] [address] Consulting Physician Colon and Rectal Surgery 03/02/25 documented as of this encounter
--- OUTSIDE RECORDS SUMMARY | 2025-03-04 12:59 | XMS_ITS | Encounter Summary ---
Author Organization [facility] Address [address] [place] [address] Phone Care Team Providers Care Accounts Administrator Name Role Phone Adalberto Gentile MD Unavailable Nithin Vu MD Primary Care Provider [phone] Karen Carrillo PAC Primary Care Provider + Karen Carrillo PAC Primary Care Provider + Dirk Peña MD Unavailable Reason for Visit * Reason Comments Medication Refill Encounter Details Date Type Department Care Team (Late st Contact Info) Description 11/30/2023 Refill [facility] - Family Medicine [facility] #[address] [place] [id number] Jessica Farr MD #2 [place] [address] Medication Refill Social History Tobacco Use Types Packs/Day Years Used Date Smoking Tobacco: Former Cigarettes 0.3 4 Smokeless Tobacco: Never Comments:Pt states that she would only smoke socially Alcohol Use Standard Drinks/Week Comments No 0 (1 standard drink = 0.6 oz pur e alcohol) [facility] Utilities Answer Date Recorded In the past 12 months has [employer], [employer], or [employer] threatened to shut off services in your home? No 11/10/2023 Social Connection and Isolation Panel Answer Date Recorded In a typical week, how many times do you talk on the phone with family, friends, or neighbors? Patient declined 11/10/2023 How often do you get togethe r with friends or relatives? Patient declined 11/10/2023 How often do you attend presybeterian or cheondoism serv ices? Patient declined 11/10/2023 Do you belong to any clubs o r organizations such as presybeterian groups, unions, fraternal or athletic groups, or [...] Score - Questions 1-9 0 12/0 01/2022 [facility] - Occupational [...] place to sleep or slept in a intermediate (including now)? No 11/10/2023 Education Answer Date [...] Description 03/06/2025 8:10 AM CDT Lab [facility] #[address] [facility] [address] [place] [address] [facility]/Ancillary 03/06/2025 2:30 PM CDT Office Visit [facility] - General Surgery - [place] #[address] [facility] [address] [place] [phone] Karen Carrillo, PAC [address] [place] [address] Dirk Peña MD #2 [facility] [address] [place] [address] 06/28/2025 9:45 AM PIGMENT PUMPER Office Visit [facility] #2 [place] [address] Adalberto Gentile MD #2 [facility] [address] [place] [address] 08/22/2025 9:00 AM PIGMENT PUMPER Office Visit [facility] - [facility] #[address] [place] [address] Karen Carrillo, PAC [address] [place] [address] documented as of this encounter Visit Diagnoses Not on filedocumented in this encounter Additional Health Concerns Assessment Noted Time PHQ-9 Depression Total Score: 0 07/21/20 22 9:00 AM PIGMENT PUMPER documented as of this encounter Care Teams Accounts Administrator Relationship Specialty Start Date End Date Nithin Vu MD #[address] [address] PCP - General Family Medicine 11/11/23 05/23/24 Karen Carrillo PAC [address] [place] [address] PCP - General Physician Front Counter Clerk 05/24/24 05/25/24 Karen Carrillo PAC #2 [place] [address] PCP - General Physician Front Counter Clerk 08/22/24 Adalberto Gentile MD #2 [facility] [address] [place] [address] Consulting Physician Urology 06/17/23 Dirk Peña MD #2 [facility] [address] [place] [address] Consulting Physician Colon and Rectal Surgery 03/02/25 documented as of this encounter
--- OUTSIDE RECORDS SUMMARY | 2025-03-04 12:59 | XMS_ITS | Encounter Summary ---
Author Organization [facility] Address [address] [place] [address] Phone Care Team Providers Care Cardiac Cath Lab Manager Name Role Phone Jessica Farr MD Primary Care Provider [phone] Adalberto Gentile MD Unavailable Nithin Vu MD Primary Care Provider [phone] Karen Carrillo PAC Primary Care Provider + Karen Carrillo PAC Primary Care Provider + Dirk Peña MD Unavailable Reason for Visit * Reason Comments Medication Refill Encounter Details Date Type Department Care Team (Late st Contact Info) Description 11/28/2022 Refill [facility] - Family Medicine [facility] #2 [place] [address] Jessica Farr MD #2 [place] [address] Medication Refill Social History Tobacco Use Types Packs/Day Years Used Date Smoking Tobacco: Former Smokeless Tobacco: Never Comments:Pt states that she would only smoke socially Alcohol Use Standard Drinks/Week Comments No 0 (1 standard drink = 0.6 oz pur e alcohol) PHQ-2 Answer Date Recorded Total Score - Questions 1-9 0 0 01/2022 Education Answer Date Recorded What [...] 07/28/22 Office Visit Jessica Farr MD [facility] 07/21/22 Office Visit Nithin Vu MD [facility] 01/26/22 Office Visit Jessica Farr MD [facility] Showing recent visits within past 365 days and meeting all other requirements Future Appointments Date Type Provider Dept 01/26/23 Appointment Jessica Farr MD [facility] Showing future appointments within next 90 days and meeting all other requirements documented in this encounter Plan of Treatment Upcoming Encounters Date Type Department Care Team (Late st Contact Info) Description 03/06/2025 8:10 AM CDT Lab [facility] [facility] [place] [address] [facility]/Ancillary 03/06/2025 2:30 PM CDT [facility] Visit [facility] - General Surgery - [facility] #2 [facility] [address] [place] [address] Karen Carrillo, PAC [address]2 [facility] [address] Dirk Peña MD #2 [facility] [address] [place] [address] 06/28/2025 9:45 AM IRON POURER Office Visit [facility] #2 [facility] [place] [address] Adalberto Gentile MD #[address] [place] [address] 08/22/2025 9:00 AM IRON POURER Office Visit [facility] - Family [facility] [place] #2 [place] [address] Karen Carrillo, PAC #[address] [facility] [address] documented as of this encounter Visit Diagnoses Not on filedocumented in this encounter Additional Health Concerns Assessment Noted Time PHQ-9 Depression Total Score: 0 07/21/20 22 9:00 AM IRON POURER documented as of this encounter Care Teams Cardiac Cath Lab Manager Relationship Specialty Start Date End Date Jessica Farr MD #2 [place] [address] PCP - General Family Medicine 05/19/17 11/10/23 Nithin Vu MD #[address] [place] [address] PCP - General Family Medicine 11/11/23 05/23/24 Karen Carrillo, PAC #2 [place] [address] PCP - General Physician Crop Or Grain Farmer 05/24/24 05/25/24 Karen Carrillo, PAC #2 [place] [address] PCP - General Physician Crop Or Grain Farmer 08/22/24 Adalberto Gentile MD #[address] [address] Consulting Physician Urology 06/17/23 Dirk Peña MD #[address] [address] Consulting Physician Colon and Rectal Surgery 03/02/25 documented as of this encounter
--- NOTE | 2025-03-04 13:01 | ED_ITS ---
HPI - Eye Problem General Chief complaint: Eye Problems Stated complaint: eye swelling Patient presents to the [facility] with complaints of continued fullness in both ears, slight pain in the left ear, nasal congestion, headache and fatigue. Patient reports she was evaluated here 6 days ago and started or Flonase and Augmentin. patient noted symptoms have slowly started to get better but wanted to ensure that something was changing. Patient does also suffer from vertigo and have had some episodes of dizziness. patient does note over the last couple days has noticed redness and tearing to the left ear, denies any matting or drainage. Denies fever, chills, body aches, drainage from ears shortness of breath, chest congestion, nausea, vomiting, diarrhea Related Data Home Medications ?Medication ?Instructions ?Recorded ?Confirmed ?Last Taken ?Type escitalopram oxalate 20 mg tablet 20 mg PO DAILY 07/18/22 07/18/22 Unknown History losartan 50 mg tablet 50 mg PO DAILY 07/18/22 07/18/22 Unknown History prednisone 20 mg tablet mg 02/26/25 Unknown History Allergies Allergy/AdvReac Type Severity Reaction Status Date / Time No Known Allergies Allergy Verified 02/26/25 11:01 Review of Systems Constitutional: Constitutional: Reports as per HPI, Denies chills, Reports fatigue, Denies fever(s) and Denies weakness Eyes: Eyes: Reports as per HPI, Denies change in vision and Denies photophobia Comments: redness and watering left eye ENT: Reports as per HPI, Reports vertigo, Reports dizziness, Reports nasal congestion and Denies sore throat Comments: fullness in both ears, decreased hearing both ears. slight pain left ear Cardiovascular: Cardiovascular: Reports no additional cardiovascular complaints Respiratory: Respiratory: Reports as per HPI, Denies chest congestion and Denies cough Gastrointestinal: Gastrointestinal: Reports no additional gastrointestinal complaints Genitourinary: Genitourinary: Reports no additional female genitourinary complaints Musculoskeletal: Musculoskeletal: Reports no additional musculoskeletal complaints Integumentary/Breasts: Skin/Breast: Reports as per HPI Neurologic: Reports as per HPI, Reports vertigo, Reports dizziness, Reports headache(s), Denies numbness and Denies weakness Psychiatric: Psychiatric: Reports no additional psychiatric complaints Endocrine: Endocrine: Reports no additional endocrine complaints Hematologic/Lymphatic: Hematologic/Lymphatic: Reports no additional hematologic/lymphatic complaints Allergic/Immunologic: Allergic/Immunologic: Reports as per HPI Comments: seasonal allergies Exam Const: General: healthy appearing and no acute distress Nutritional Appearance: well nourished Orientation/consciousness: patient oriented x3 Limitations: no limitations HENMT: Head: normal to inspection Ears: external ears normal and TM's abnormal bilaterally Face/Nose/Sinus: Normal external nose present and nares abnormal Face and sinus: normal facial exam and sinuses nontender Mouth: Yes Normal oral and palatal mucosa present, Yes lip normal and Yes moist mucous membranes Throat: posterior oropharynx normal Other: Right TM minimal bulging with dullness and clear fluid noted, no erythema. Left TM minimal erythema, dullness, and cloudy fluid noted behind the ear with mild bulging. Mild erythema noted to left nare Eyes: Conjunctivae: conjunctival abnormality (erythema ) left Pupils: Equal, round and reactive pupils present EOM: EOMs intact bilaterally Direct Ophthalmoscopy: no photophobia Neck: Neck: no lymphadenopathy Resp: Effort & Inspection: normal respiratory effort Auscultation: clear to auscultation bilaterally Cardio: Rate: regular rate Rhythm: regular rhythm Skin: General skin exam: normal color Rashes: no rashes Wounds: no wounds Neuro: General: patient oriented x3 Speech: normal speech Gait exam (Neuro): Normal gait present Psych: Mental Status: mental status grossly normal Affect: normal affect Attitude: cooperative Course Course Level of Care: Express Care Visit MDM - Eye Problem MDM Narrative Medical decision making narrative: reviewed previous visit notes. Patient declines prednisone reports she was recently on prednisone and had to stop this for a blood test will add eyedrops and Sudafed. Discharge instructions reviewed with patient, as well as provided in writing per nursing staff. The instructions also include specific and strict return/GO TO THE ER as well as f/u information. All questions have been answered, and the patient deny any further questions with discharge and discharge plan. Differential Diagnosis Differential diagnosis: Likely corneal abrasion, conjunctivitis, hyphema, periorbital cellulitis, subconjunctival hemorrhage and glaucoma Medical Records Attestation: I reviewed the patient's medical records. Discharge Plan Discharge Clinical Impression: Bacterial conjunctivitis, Acute otitis media, left Patient Disposition: Home Condition: Stable Instructions: Antibiotic Form, Sinusitis (ED), Conjunctivitis (ED) Additional Instructions: Do not rub the eye or put anything else in the eye, this can cause abrasions (scratches) on the eye or lead to vision loss. Also it is important not to touch the tube or tip of drops to the eye, as this can cause further infection. Wash your hands very well before instilling the medication. Handwashing can help prevent the spread of disease. Follow up with PCP in 7-10 days Return to ER for problems Contact [facility] if you need an [place] [] Patient Language: Irish Prescriptions: New polymyxin B sulf-trimethoprim 10,000 unit- 1 mg/mL drops 1 drp LEFT EYE Q4H 7 Days Qty: 10 0RF Rx Instructions: while awake; do not exceed 6 doses in 24 hours No Action losartan 50 mg tablet 50 mg PO DAILY escitalopram oxalate 20 mg tablet 20 mg PO DAILY prednisone 20 mg tablet amoxicillin-pot clavulanate 875-125 mg tablet 1 tablet PO Q12H 10 Days Qty: 20 0RF fluticasone propionate [Flonase Allergy Relief] 50 mcg/actuation spray,cantrell spension 1 spray intranasal BID Qty: 16 0RF Rx Instructions: administer into each nostril Follow-up/Referrals: Gerardo,DAVID Barnett [Primary Care Provider] - Time of Disposition: 13:18
[2025-03-04 13:03] VITALS: BP 142/89; PULSE 76; RESP 18; TEMP 36.4; O2SAT 98
== END 2025-03-04 13:32 | disposition home or self-care (01) ==
PROVIDERS: Emergency Provider Nurse Practitioner Family; PCP Physician Assistant
DX: H10.9 Unspecified conjunctivitis (principal); H66.92 Otitis media, unspecified, left ear
CPT/HCPCS: 99213; G0463